=== PATIENT | female | born 1945 | race Caucasian/White ===

== ENCOUNTER → 2016-03-29 | Outpatient (CLI) | payer MEDICARE, BC ==
[2016-03-29 09:06] LABS: CHLORIDE,CL 106 mmol/L (98-110); SODIUM,NA 141 mmol/L (136-146)
== END | disposition home or self-care (01) ==
LOC: MW.CHRC 08:11
PROVIDERS: ATTEND Family Medicine
DX: Z00.00 Encounter for general adult medical examination without abnormal findings (principal); E78.00 Pure hypercholesterolemia, unspecified
CPT/HCPCS: 36415; 80053; 80061; 99214

== ENCOUNTER 2016-09-23 10:01 | Emergency (ER) | payer MEDICARE, BC, OTHER ==
[2016-09-23] MEDS ORDERED: Sodium Chloride 0.9% 1,000 ML IV ONE (10:23)
--- NOTE | 2016-09-23 10:25 | EDM.PDOC ---
ED HPI GENERAL MEDICAL PROBLEM - General Chief Complaint: Chest Pain Stated Complaint: CHEST PAINS Time Seen by Provider: 09/23/16 10:10 Source of Information: Reports: Patient History Limitations: Reports: No Limitations - History of Present Illness INITIAL COMMENTS - FREE TEXT/NARRATIVE: HISTORY AND PHYSICAL: History of present illness: [Patient comes the emergency room complaining of a fluttering sensation in her chest. Symptoms began yesterday but other than the fluttering sensation she didn 't have any other symptoms. This morning around 9 AM she was eating breakfast when the fluttering sensation returned causing her to feel dizzyand nauseated. She denies any chest pain, shortness of breath or difficulty breathing. No abdominal pain vomiting constipation or diarrhea. Denies blurred vision and double vision. No sore throat or earaches. No swelling to her feet or lower legs. She denies any pain at all. Denies history of similar symptoms in the past. She has recently been well and not had any recent infections. Has a history of anxiety, depression, hypercholesterolemia. Family history significant for MS. Patient admits that she takes in the stress and sadness of events happening around her and reacts strongly through her emotions. She has been especially concerned about her daughter's [id number] who has been recently diagnosed with stage IV cancer with metastasis and is not doing well. This weighs heavily on her heart and she spends a lot of time thinking about him and his illness. Has this at the bedside and states that this is typically how patient violeta.] Review of systems: As per history of present illness and below otherwise all systems reviewed and negative. Past medical history: As per history of present illness and as reviewed below otherwise noncontributory. Surgical history: As per history of present illness and as reviewed below otherwise noncontributory. Social history: No reported history of drug or alcohol abuse. Family history: As per history of present illness and as reviewed below otherwise noncontributory. Physical exam: HEENT: Atraumatic, normocephalic. Oral mucous membranes moist, throat clear. neck supple, nontender, no lymphadenopathy. Lungs: Clear to auscultation, breath sounds equal bilaterally, chest nontender with palpation. Heart: S1S2, regular rate, negative for murmur clicks, rubs,. Abdomen: Soft, nondistended, nontender. Negative for masses guarding and rebound. Negative for costovertebral tenderness. Pelvis: Stable nontender. Genitourinary: Deferred. Rectal: Deferred. Extremities: Atraumatic, negative for cords or calf pain. Swelling or cyanosis. Neurovascular unremarkable. Neuro: Awake, alert, oriented. Motor and sensory unremarkable throughout. Exam nonfocal. psych: Pleasant conversationalist. Diagnostics: [EKG, chest x-ray, CBC, CMP, troponin, UA] Therapeutics: [Ativan 0.5 mg IV, Zofran 4 mg IV, normal saline at 125 miles per hour] Impression: [Palpitations Anxiety] Plan: [EKG shows normal sinus rhythm and rate of 88. No ST changes. Troponin is less than 0.10. CBC and CMP are unremarkable. Urinalysis is clear. Chest x-ray shows no pneumothorax or abnormality. Discussed with patient that palpitations are not uncommon particularly in people with high stress and anxiety. Recommend follow-up with PCP, and therapist Lala Samano, in the next week. Strict return precautions are reviewed with the patient and her .] Definitive disposition and diagnosis as appropriate pending reevaluation and review of above. chest Pain Score (Numeric/FACES): 5 - Related Data Allergies Allergy/AdvReac Type Severity Reaction Status Date / Time No Known Allergies Allergy Verified 09/23/16 10:08 Home Meds: Home Meds ClonazePAM [KlonoPIN] 0.5 mg PO BEDTIME 09/23/16 [History] Desvenlafaxine Succinate [Pristiq ER] 50 mg PO DAILY 09/23/16 [History] atorvaSTATin [Lipitor] 10 mg PO BEDTIME 09/23/16 [History] Past Medical History - Past Health History Medical/Surgical History: Denies Medical/Surgical History Cardiovascular History: Reports: High Cholesterol Psychiatric History: Reports: Anxiety, Depression Social & Family History - Family History Family Medical History: Noncontributory - Tobacco Use Smoking Status *Q: Never Smoker - Recreational Drug Use Recreational Drug Use: No ED ROS GENERAL - Review of Systems Review Of Systems: ROS reveals no pertinent complaints other than HPI. ED EXAM, GENERAL - Physical Exam Exam: See Below Course - Vital Signs Last Recorded V/S: Last Vital Signs Temp 97.5 F 09/23/16 10:11 Pulse 83 09/23/16 10:11 Resp 18 09/23/16 10:11 BP 143/87 H 07/29/17 10:11 Pulse Ox 97 09/23/16 10:11 - Orders/Labs/Meds Orders: Active Orders 24 hr Category Date Time Status EKG Documentation Completion [RC] STAT Care 09/23/16 10:23 Active Chest 2V [CR] Stat Exams 09/23/16 10:23 Taken Sodium Chloride 0.9% [Normal Saline] 1,000 ml Med 09/23/16 10:23 Active IV .Bolus Medication Orders Sodium Chloride (Normal Saline) 1,000 mls @ 125 mls/hr IV .Bolus ONE Stop: 09/23/16 18:22 Last Admin: 09/23/16 10:47 Dose: 125 mls/hr Labs: Laboratory Tests 09/23/16 09/23/16 09/23/16 Range/Units 10:15 10:15 10:15 WBC 4.52 (4.0-11.0) K/uL RBC 4.94 (4.30-5.90) M/uL Hgb 14.2 (12.0-16.0) g/dL Hct 42.5 (36.0-46.0) % MCV 86.0 (80.0-98.0) fL MCH 28.7 (27.0-32.0) pg MCHC 33.4 (31.0-37.0) g/dL RDW Std Deviation 41.7 (28.0-62.0) fl RDW Coeff of Parth 13 (11.0-15.0) % Plt Count 225 (150-400) K/uL MPV 10.00 (7.40-12.00) fL Neut % (Auto) 58.8 (48.0-80.0) % Lymph % (Auto) 24.6 (16.0-40.0) % Garrett % (Auto) 10.4 (0.0-15.0) % Eos % (Auto) 5.8 (0.0-7.0) % Baso % (Auto) 0.4 (0.0-1.5) % Neut # (Auto) 2.7 (1.4-5.7) K/uL Lymph # (Auto) 1.1 (0.6-2.4) K/uL Garrett # (Auto) 0.5 (0.0-0.8) K/uL Eos # (Auto) 0.3 (0.0-0.7) K/uL Baso # (Auto) 0.0 (0.0-0.1) K/uL Nucleated RBC % 0.0 /100WBC Nucleated RBCs # 0 K/uL Sodium 140 (136-146) mmol/L Potassium 3.9 (3.5-5.1) mmol/L Chloride 103 (98-110) mmol/L Carbon Dioxide 28 (21-31) mmol/L BUN 22 (6.0-23.0) mg/dL Creatinine 1.0 (0.6-1.5) mg/dL Est Cr Clr Drug Dosing TNP Estimated GFR (MDRD) 54.7 ml/min Glucose 98 (60-110) mg/dL Calcium 9.5 (8.8-10.8) mg/dL Total Bilirubin 0.6 (0.1-1.5) mg/dL AST 26 (5-40) IU/L ALT 23 (8-54) IU/L Alkaline Phosphatase 72 (40-150) Troponin I < 0.10 (0.0-0.29) NG/ML Total Protein 7.2 (6.0-8.0) g/dL Albumin 4.0 (3.4-4.8) g/dL Globulin 3.2 (2.0-3.5) g/dL Albumin/Globulin Ratio 1.3 (1.3-2.8) Urine Color Urine Appearance Urine pH (5.0-8.0) Ur Specific Briscoe (1.001-1.035) Urine Protein (NEGATIVE) mg/dL Urine Glucose (UA) (NEGATIVE) mg/dL Urine Ketones (NEGATIVE) mg/dL Urine Occult Blood (NEGATIVE) Urine Nitrite (NEGATIVE) Urine Bilirubin (NEGATIVE) Urine Urobilinogen (<2.0) EU/dL Ur Leukocyte Esterase (NEGATIVE) Urine RBC (0-2/HPF) Urine WBC (0-5/HPF) Ur Epithelial Cells (NONE-FEW) Urine Bacteria (NEGATIVE) 09/23/16 Range/Units 10:45 WBC (4.0-11.0) K/uL RBC (4.30-5.90) M/uL Hgb (12.0-16.0) g/dL Hct (36.0-46.0) % MCV (80.0-98.0) fL MCH (27.0-32.0) pg MCHC (31.0-37.0) g/dL RDW Std Deviation (28.0-62.0) fl RDW Coeff of Parth (11.0-15.0) % Plt Count (150-400) K/uL MPV (7.40-12.00) fL Neut % (Auto) (48.0-80.0) % Lymph % (Auto) (16.0-40.0) % Garrett % (Auto) (0.0-15.0) % Eos % (Auto) (0.0-7.0) % Baso % (Auto) (0.0-1.5) % Neut # (Auto) (1.4-5.7) K/uL Lymph # (Auto) (0.6-2.4) K/uL Garrett # (Auto) (0.0-0.8) K/uL Eos # (Auto) (0.0-0.7) K/uL Baso # (Auto) (0.0-0.1) K/uL Nucleated RBC % /100WBC Nucleated RBCs # K/uL Sodium (136-146) mmol/L Potassium (3.5-5.1) mmol/L Chloride (98-110) mmol/L Carbon Dioxide (21-31) mmol/L BUN (6.0-23.0) mg/dL Creatinine (0.6-1.5) mg/dL Est Cr Clr Drug Dosing Estimated GFR (MDRD) ml/min Glucose (60-110) mg/dL Calcium (8.8-10.8) mg/dL Total Bilirubin (0.1-1.5) mg/dL AST (5-40) IU/L ALT (8-54) IU/L Alkaline Phosphatase (40-150) Troponin I (0.0-0.29) NG/ML Total Protein (6.0-8.0) g/dL Albumin (3.4-4.8) g/dL Globulin (2.0-3.5) g/dL Albumin/Globulin Ratio (1.3-2.8) Urine Color YELLOW Urine Appearance CLEAR Urine pH 7.0 (5.0-8.0) Ur Specific Briscoe 1.010 (1.001-1.035) Urine Protein NEGATIVE (NEGATIVE) mg/dL Urine Glucose (UA) NEGATIVE (NEGATIVE) mg/dL Urine Ketones NEGATIVE (NEGATIVE) mg/dL Urine Occult Blood NEGATIVE (NEGATIVE) Urine Nitrite NEGATIVE (NEGATIVE) Urine Bilirubin NEGATIVE (NEGATIVE) Urine Urobilinogen 0.2 (<2.0) EU/dL Ur Leukocyte Esterase MODERATE (NEGATIVE) Urine RBC 0-2 (0-2/HPF) Urine WBC 3-6 (0-5/HPF) Ur Epithelial Cells FEW (NONE-FEW) Urine Bacteria FEW (NEGATIVE) Meds: Medications Generic Name Dose Route Start Last Admin Trade Name Freq PRN Reason Stop Dose Admin Sodium Chloride 1,000 mls @ 125 mls/hr 09/23/16 10:23 09/23/16 10:47 Normal Saline IV 09/23/16 18:22 125 mls/hr .Bolus ONE Administration Discontinued Medications Generic Name Dose Route Start Last Admin Trade Name Freq PRN Reason Stop Dose Admin Lorazepam 0.5 mg 09/23/16 10:53 09/23/16 11:11 Ativan IVPUSH 09/23/16 10:54 0.5 mg ONETIME ONE Administration Ondansetron HCl 4 mg 09/23/16 10:26 09/23/16 10:28 Zofran IVPUSH 09/23/16 10:27 4 mg ONETIME ONE Administration Departure - Departure Time of Disposition: 12:00 Disposition: Home, Self-Care 01 Condition: Good Clinical Impression: Palpitations, Anxiety Instructions: Palpitations, [id number] Referrals: Huebrt Elmore MD [Primary Care Provider] - Forms: ED Department Discharge Additional Instructions: The following information is given to patients seen in the emergency department who are being discharged to home. This information is to outline your options for follow-up care. We provide all patients seen in our emergency department with a follow-up referral. The need for follow-up, as well as the timing and circumstances, are variable depending upon the specifics of your emergency department visit. If you don't have a primary care physician on staff, we will provide you with a referral. We always advise you to contact your personal physician following an emergency department visit to inform them of the circumstance of the visit and for follow-up with them and/or the need for any referrals to a consulting specialist. The emergency department will also refer you to a specialist when appropriate. This referral assures that you have the opportunity for follow-up care with a specialist. All of these measure are taken in an effort to provide you with optimal care, which includes your follow-up. Under all circumstances we always encourage you to contact your private physician who remains a resource for coordinating your care. When calling for follow-up care, please make the office aware that this follow-up is from your recent emergency room visit. If for any reason you are refused follow-up, please contact the [facility] emergency department at and asked to speak to the emergency department charge nurse. [address] [address] Follow-up with Parisa Milian this week. Return to ER as needed as discussed. - My Orders Last 24 Hours: My Active Orders 09/23/16 10:23 EKG Documentation Completion [RC] STAT Chest 2V [CR] Stat Sodium Chloride 0.9% [Normal Saline] 1,000 ml IV .Bolus - Assessment/Plan Last 24 Hours: My Active Orders 09/23/16 10:23 EKG Documentation Completion [RC] STAT Chest 2V [CR] Stat Sodium Chloride 0.9% [Normal Saline] 1,000 ml IV .Bolus
[2016-09-23] MEDS ORDERED: Ondansetron 4 MG/2 ML SDV IVPUSH ONE (10:26)
[2016-09-23] MEDS ORDERED: LORazepam 2 MG/ML MDV IVPUSH ONE (10:53)
[2016-09-23 10:58] LABS: CHLORIDE,CL 103 mmol/L (98-110); SODIUM,NA 140 mmol/L (136-146)
[2016-09-23 19:24] VITALS: BP 117/75
--- NOTE | 2016-09-25 11:01 | CR ---
EXAM DATE: 09/23/16 PATIENT'S AGE: 71 Patient: SAMAN RODRIGUEZ Facility: [place], [place] Site . Site : 1945 Study: XRay Chest [id number]/29/2017 10:43:05 AM Ordering Physician: Doctor Avalos Final Report: CHEST 2 VIEWS INDICATION: Chest pain and nausea. IMPRESSION: Normal heart size and vascular pattern. Lungs are clear. No pneumothorax or pleural abnormality. Dictated by Cresencio Gillespie MD @ Sep 23 2016 10:54AM (Electronic Signature) Report Signed by Proxy. [facility]
== END 2016-09-23 12:12 | disposition home or self-care (01) ==
LOC: MW.ED 10:01
DX: F41.9 Anxiety disorder, unspecified (principal); R00.2 Palpitations; E78.00 Pure hypercholesterolemia, unspecified; Z79.899 Other long term (current) drug therapy
CPT/HCPCS: 71020; 80053; 81001; 84484; 85025; 96361; 96374; 96375; 99285; J2060; J2405; J7040; 93005; 99283

== ENCOUNTER 2016-09-27 21:58 | Observation (INO) | payer MEDICARE, BC ==
[2016-09-27] MEDS ORDERED: Sodium Chloride 0.9% 10 ML Syringe FLUSH PRN (22:16)
[2016-09-27] MEDS ORDERED: Aspirin 81 MG Tab.Chew PO ONE (22:16)
[2016-09-27] MEDS ORDERED: Sodium Chloride 0.9% 2.5 ML Syringe FLUSH PRN (22:16)
--- NOTE | 2016-09-27 22:17 | EDM.PDOC ---
ED HPI GENERAL MEDICAL PROBLEM - General Chief Complaint: Chest Pain Stated Complaint: PT LT SHOULDER HURT Time Seen by Provider: 09/27/16 22:00 Source of Information: Reports: Patient History Limitations: Reports: No Limitations - History of Present Illness INITIAL COMMENTS - FREE TEXT/NARRATIVE: HISTORY AND PHYSICAL: History of present illness: [71-year-old female with a past medical history of high cholesterol and a family history of coronary artery disease since emergency department complaining of chest pain. Patient states she's had intermittent mid chest pressure over the last several days worse tonight. She states this is exertional relieved by rest. She has associated nausea but no diaphoresis or shortness of air. No productive cough or fever. Denies pleuritic pain. Pain is not reproducible with movement or palpation. No fevers chills sweats or shaking chills. Patient has never had a cardiac workup nor been known to have any Cardiac problem. She does not have a talcer Review of systems: As per history of present illness and below otherwise all systems reviewed and negative. Past medical history: As per history of present illness and as reviewed below otherwise noncontributory. Surgical history: As per history of present illness and as reviewed below otherwise noncontributory. Social history: No reported history of drug or alcohol abuse. Family history: As per history of present illness and as reviewed below otherwise noncontributory. Physical exam: Well-appearing patient distress alert communicative and appropriate. Nontender chest wall clear lungs regular rate and rhythm main her exam is benign HEENT: Atraumatic, normocephalic, pupils reactive, negative for conjunctival pallor or scleral icterus, mucous membranes moist, throat clear, neck supple, nontender, trachea midline. Lungs: Clear to auscultation, breath sounds equal bilaterally, chest nontender. Heart: S1S2, regular, negative for clicks, rubs, or JVD. Abdomen: Soft, nondistended, nontender. Negative for masses or hepatosplenomegaly. Negative for costovertebral tenderness. Pelvis: Stable nontender. Genitourinary: Deferred. Rectal: Deferred. Extremities: Atraumatic, negative for cords or calf pain. Neurovascular unremarkable. Neuro: Awake, alert, oriented. Cranial nerves II through XII unremarkable. Cerebellum unremarkable. Motor and sensory unremarkable throughout. Exam nonfocal. Diagnostics: [EKG interpreted by me normal sinus rhythm at 74 normal axis no STEMI Chest x-ray unremarkable interpreted by me] Therapeutics: [Aspirin given] Impression: [Chest pain] Plan: [Signs and symptoms consistent with chest pain possible cardiac etiology in a patient with multiple cardiac risk factors including high cholesterol strong family history and age. EKG unremarkable greater workup pending. Anticipate observation telemetry admission to the service of Dr. Trav Crooks for further cardiac workup and treatment as needed.] Definitive disposition and diagnosis as appropriate pending reevaluation and review of above. chest Pain Score (Numeric/FACES): 5 - Related Data Allergies Allergy/AdvReac Type Severity Reaction Status Date / Time No Known Allergies Allergy Verified 09/23/16 10:08 Home Meds: Home Meds ClonazePAM [KlonoPIN] 0.5 mg PO BEDTIME 09/23/16 [History] Desvenlafaxine Succinate [Pristiq] 50 mg PO DAILY 09/23/16 [History] atorvaSTATin [Lipitor] 10 mg PO BEDTIME 09/23/16 [History] Nitrofurantoin Traill/Macrocryst [Macrobid] 100 mg PO BID 09/28/16 [History] Past Medical History - Past Health History Medical/Surgical History: Denies Medical/Surgical History HEENT History: Reports: None Cardiovascular History: Reports: High Cholesterol Respiratory History: Reports: None Gastrointestinal History: Reports: None Genitourinary History: Reports: None [employer] History: Reports: None Musculoskeletal History: Reports: None Neurological History: Reports: None Psychiatric History: Reports: Anxiety, Depression Endocrine/Metabolic History: Reports: None Oncologic (Cancer) History: Reports: None Dermatologic History: Reports: None - Infectious Disease History Infectious Disease History: Reports: Chicken Pox - Past Surgical History Female Surgical History: Reports: None Social & Family History - Family History Family Medical History: Noncontributory - Tobacco Use Smoking Status *Q: Never Smoker - Recreational Drug Use Recreational Drug Use: No ED ROS GENERAL - Review of Systems Review Of Systems: See Below (History of present illness) ED EXAM, GENERAL - Physical Exam Exam: See Below (History of present illness) Course - Vital Signs Last Recorded V/S: Last Vital Signs Temp 36.5 C 09/28/16 08:00 Pulse 79 09/28/16 08:00 Resp 16 09/28/16 08:00 BP 122/59 L 09/28/16 08:00 Pulse Ox 96 09/28/16 08:00 - Orders/Labs/Meds Labs: Laboratory Tests 09/27/16 09/27/16 09/27/16 Range/Units 22:05 22:05 22:05 WBC 5.15 (4.0-11.0) K/uL RBC 4.68 (4.30-5.90) M/uL Hgb 13.5 (12.0-16.0) g/dL Hct 40.3 (36.0-46.0) % MCV 86.1 (80.0-98.0) fL MCH 28.8 (27.0-32.0) pg MCHC 33.5 (31.0-37.0) g/dL RDW Std Deviation 41.3 (28.0-62.0) fl RDW Coeff of Parth 13 (11.0-15.0) % Plt Count 236 (150-400) K/uL MPV 10.10 (7.40-12.00) fL Neut % (Auto) 49.1 (48.0-80.0) % Lymph % (Auto) 32.8 (16.0-40.0) % Traill % (Auto) 11.3 (0.0-15.0) % Eos % (Auto) 6.2 (0.0-7.0) % Baso % (Auto) 0.6 (0.0-1.5) % Neut # (Auto) 2.5 (1.4-5.7) K/uL Lymph # (Auto) 1.7 (0.6-2.4) K/uL Traill # (Auto) 0.6 (0.0-0.8) K/uL Eos # (Auto) 0.3 (0.0-0.7) K/uL Baso # (Auto) 0.0 (0.0-0.1) K/uL Nucleated RBC % 0.0 /100WBC Nucleated RBCs # 0 K/uL Sodium 141 (136-146) mmol/L Potassium 4.0 (3.5-5.1) mmol/L Chloride 105 (98-110) mmol/L Carbon Dioxide 27 (21-31) mmol/L BUN 21 (6.0-23.0) mg/dL Creatinine 1.0 (0.6-1.5) mg/dL Est Cr Clr Drug Dosing 40.81 mL/min Estimated GFR (MDRD) 54.7 ml/min Glucose 114 H (60-110) mg/dL Calcium 9.6 (8.8-10.8) mg/dL Total Bilirubin 0.3 (0.1-1.5) mg/dL AST 24 (5-40) IU/L ALT 24 (8-54) IU/L Alkaline Phosphatase 70 (40-150) Troponin I < 0.10 (0.0-0.29) NG/ML Total Protein 7.2 (6.0-8.0) g/dL Albumin 4.1 (3.4-4.8) g/dL Globulin 3.1 (2.0-3.5) g/dL Albumin/Globulin Ratio 1.3 (1.3-2.8) Meds: Medications Discontinued Medications Generic Name Dose Route Start Last Admin Trade Name Freq PRN Reason Stop Dose Admin Aspirin 324 mg 09/27/16 22:16 09/27/16 22:25 Aspirin PO 09/27/16 22:17 324 mg ONETIME ONE Administration Atorvastatin Calcium 10 mg 09/28/16 21:00 Lipitor PO BEDTIME ABAD Clonazepam 0.5 mg 09/28/16 21:00 Klonopin PO BEDTIME ABAD Sodium Chloride 1,000 mls @ 125 mls/hr 09/27/16 22:30 09/28/16 01:00 Normal Saline IV 125 mls/hr ASDIRECTED ABAD Infusion Nitrofurantoin Macrocrystals 100 mg 09/28/16 09:00 Macrobid PO BID ABAD Desvenlafaxine 1 each 09/28/16 21:00 Succinate [Pristiq] PO 50 Mg BEDTIME ABAD Sodium Chloride 10 ml 09/27/16 22:16 Saline Flush FLUSH ASDIRECTED PRN Keep Vein Open Sodium Chloride 2.5 ml 09/27/16 22:16 Saline Flush FLUSH ASDIRECTED PRN Keep Vein Open Departure - Departure Time of Disposition: 08:00 Disposition: Refer to Observation Condition: Good Clinical Impression: Chest pain - Discharge Information
[2016-09-27] MEDS ORDERED: Sodium Chloride 0.9% 1,000 ML IV SCH (22:30)
[2016-09-28] MEDS ORDERED: Nitrofurantoin Monohydrate/Macrocrystalline 100 MG Cap PO SCH (09:00)
[2016-09-28 09:26] VITALS: BP 122/59
--- NOTE | 2016-09-28 10:53 | CR ---
EXAM DATE: 09/27/16 PATIENT'S AGE: 71 Patient: SAMAN RODRIGUEZ Facility: [place], [place] Site . Site : 1945 Study: XRay Chest [id number]/2/2017 10:59:44 PM Ordering Physician: Apollo Bermeo Final Report: INDICATION: pain TECHNIQUE: Chest 1 view COMPARISON: September 23, 2016 FINDINGS: Cardiovascular and mediastinum: Heart size and vasculature are normal in caliber and appearance. Mediastinum is within normal limits. Lungs and pleural space: Hyperinflation and scarring. No sign of pleural effusion. No pneumothorax. Bones and soft tissues: Degenerative changes with rightward curvature. IMPRESSION: No acute cardiopulmonary disease. Dictated by Jayce Gonzalez MD @ 09/27/2016 11:18:25 PM Dictated by: Jayce Gonzalez MD @ 09/27/2016 23:19:41 (Electronic Signature) Report Signed by Proxy. [facility]
--- NOTE | 2016-09-28 11:38 | PCM.HP ---
H&P History of Present Illness - General Date of Service: 09/28/16 Admit Problem/Dx: Admission Diagnosis/Problem Admission Diagnosis/Problem Chest pain Source of Information: Patient - History of Present Illness Initial Comments - Free Text/Narative: Her presenting illness: Liana is a wonderful 71-year-old female who was presented today secondary to chest pain. He states this is been an ongoing issue off and on for about a week. She was assessed for chest pain earlier in the week in the ER and was sent home with no cardiac related issues. Colitides after that she did have a UTI infection for which she was given antibiotics. 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 She states that she also has anxiety and that started to kick in a little bit more she ended up developing diaphoresis and a little bit of nausea. 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 In the emergency department she had an ECG done initial tropes done both of which came back negative however due to her history of high cholesterol and family history of coronary artery disease on both sides of family as well as her repeat chest pain it was determined that the patient needed to be admitted for ACS rule out. chest Pain Score (Numeric/FACES): 0 - Related Data Allergies/Adverse Reactions: Allergies Allergy/AdvReac Type Severity Reaction Status Date / Time No Known Allergies Allergy Verified 09/23/16 10:08 Home Medications: Home Meds ClonazePAM [KlonoPIN] 0.5 mg PO BEDTIME 09/23/16 [History] Desvenlafaxine Succinate [Pristiq] 50 mg PO DAILY 09/23/16 [History] atorvaSTATin [Lipitor] 10 mg PO BEDTIME 09/23/16 [History] Nitrofurantoin Yates/Macrocryst [Macrobid] 100 mg PO BID 09/28/16 [History] Past Medical History - Past Health History Medical/Surgical History: Denies Medical/Surgical History HEENT History: Reports: None Cardiovascular History: Reports: High Cholesterol Respiratory History: Reports: None Gastrointestinal History: Reports: None Genitourinary History: Reports: UTI, Recurrent, Other (See Below) Other Genitourinary History: currently on medication 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: 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 Musculoskeletal History: Reports: Arthritis Neurological History: Reports: None Psychiatric History: Reports: Anxiety, Depression Other Psychiatric History: on medication Endocrine/Metabolic History: Reports: None Hematologic History: Reports: None Immunologic History: Reports: None Oncologic (Cancer) History: Reports: None Dermatologic History: Reports: None - Infectious Disease History Infectious Disease History: Reports: Chicken Pox - Past Surgical History Head Surgeries/Procedures: Reports: None HEENT Surgical History: Reports: None Cardiovascular Surgical History: Reports: None Respiratory Surgical History: Reports: None GI Surgical History: Reports: Appendectomy Female Surgical History: Reports: None Endocrine Surgical History: Reports: None Neurological Surgical History: Reports: None Musculoskeletal Surgical History: Reports: None Oncologic Surgical History: Reports: None Dermatological Surgical History: Reports: None Social & Family History - Family History Cardiac: Reports: CAD, DC - Tobacco Use Smoking Status *Q: Never Smoker Second Hand Smoke Exposure: No - Caffeine Use Caffeine Use: Reports: Coffee Caffeine Use Comment: 3 cups coffee/day - Recreational Drug Use Recreational Drug Use: No H&P Review of Systems - Review of Systems: Review Of Systems: ROS reveals no pertinent complaints other than HPI. Exam - Exam Exam: See Below - Vital Signs Vital Signs: Last Vital Signs Temp 36.5 C 09/28/16 08:00 Pulse 79 09/28/16 08:00 Resp 16 09/28/16 08:00 BP 122/59 L 09/28/16 08:00 Pulse Ox 96 09/28/16 08:00 Weight: 58.196 kg - Exam General: Alert, Oriented HEENT: Conjunctiva Clear, EOMI Neck: Supple, Trachea Midline Lungs: Clear to Auscultation, Normal Respiratory Effort Cardiovascular: Regular Rate, Regular Rhythm GI/Abdominal Exam: Normal Bowel Sounds, Soft, Non-Tender Back Exam: Normal Inspection Extremities: Normal Inspection, Normal Range of Motion, Non-Tender, No Pedal Edema, Normal Capillary Refill Skin: Warm, Dry, Intact Neurological: Cranial Nerves Intact Neuro Extensive - Mental Status: Alert, Oriented x3 Psychiatric: Alert - Patient Data Lab Results Last 24 hrs: Laboratory Results - last 24 hr 09/28/16 09/28/16 Range/Units 03:58 10:21 Troponin I < 0.10 < 0.10 (0.0-0.29) NG/ML Result Diagrams: 09/27/16 22:05 09/27/16 22:05 EKG INTERPRETATION EKG Date: 09/28/16 Rhythm: NSR [place]: Normal P-Wave: Present QRS: Normal ST-T: Normal QT: Normal *Q Meaningful Use (ADM) - VTE *Q VTE Criteria *Q: - Stroke *Q Stroke Criteria *Q: - AMI *Q AMI Criteria *Q: - Problem List (1) Chest pain SNOMED Code(s): 58056458 ICD Code: R07.9 - CHEST PAIN, UNSPECIFIED Status: Acute Priority: High Current Visit: Yes Problem List Initiated/Reviewed/Updated: Yes Orders Last 24hrs: Active Orders 24 hr Category Date Time Status Communication Order [RC] DAILY Care 09/28/16 00:18 Active EKG 12 Lead [EKG Documentation Completion] [] ROUTINE Care 09/28/16 10:21 Inactive Ready for Discharge [] PER UNIT ROUTINE Care 09/28/16 11:30 Ordered Telemetry Monitoring [Cardiac Monitoring] [] Q8H Care 09/28/16 00:16 Active Heart Healthy Diet [DIET] Diet 09/28/16 Breakfast Active ClonazePAM [KlonoPIN] Med 09/28/16 21:00 Active 0.5 mg PO BEDTIME Nitrofurantoin Yates/Macrocryst [Macrobid] Med 09/28/16 09:00 Hold 100 mg PO BID Patient's Own Medication [Ptom] Med 09/28/16 21:00 Active 1 each PO BEDTIME atorvaSTATin [Lipitor] Med 09/28/16 21:00 Active 10 mg PO BEDTIME Saline Lock Insert [OM.PC] Routine Oth 09/28/16 00:18 Ordered Medication Orders Atorvastatin Calcium (Lipitor) 10 mg PO BEDTIME ABAD Clonazepam (Klonopin) 0.5 mg PO BEDTIME ABAD Nitrofurantoin Macrocrystals (Macrobid) 100 mg PO BID ABAD Desvenlafaxine Succinate [Pristiq] 50 Mg 1 each PO BEDTIME ABAD Sodium Chloride (Saline Flush) 10 ml FLUSH ASDIRECTED PRN PRN Reason: Keep Vein Open Sodium Chloride (Saline Flush) 2.5 ml FLUSH ASDIRECTED PRN PRN Reason: Keep Vein Open Assessment/Plan Comment:: Assessment/plan: #1. Chest pain exertional in nature, diaphoresis, nausea along with previous episode of chest pain. - ACS rule out required, drops 3, ECG, general labs. Discharge summary Admitting diagnosis: 1. Chest pain exertional in nature, diaphoresis, nausea, ACS rule out required Discharge diagnosis #1. Exertional chest pain, diaphoresis, and nausea now resolved ACS symptoms ruled out 2. Due to patient's GELA score 8% patient does require outpatient stress test. Consultations: None Procedures: None Hospitalization course: Patient was admitted last night secondary to ACS rule out she no longer had chest pain diaphoresis while inpatient. Patient had a normal ECG drips were normal 3, normal laboratory values. After speaking with the patient this morning she was stable and not having any further issues. However her GELA score is 8% risk of further event as such patient will be getting a nuclear stress test outpatient and seeing her primary care physician for further workup. Discharge and disposition: Home Condition on discharge: Patient was stable nondiaphoretic no chest pain no shortness of breath able to intake proper by mouth and was ready to go home Instructions on discharge: Patient was told if she had further chest pain, diaphoresis, nausea or vomiting, fever she is to either see her primary care physician right away or come back to the ER right away. Medications on discharge: Resume home medication Follow-up instructions on discharge : Patient is to follow-up with her primary care physician Dr. deleon. Patient is also to have a nuclear stress test done outpatient for cardiac-related symptoms rule out
[2016-09-28] MEDS ORDERED: Desvenlafaxine Succinate [Pristiq] 50 MG PO SCH (21:00)
[2016-09-28] MEDS ORDERED: ClonazePAM 0.5 MG Tab PO SCH (21:00)
[2016-09-28] MEDS ORDERED: atorvaSTATin 10 MG Tab PO SCH (21:00)
== END 2016-09-28 12:05 | disposition home or self-care (01) ==
LOC: MW.ED 21:58 → MW.MS 23:23
PROVIDERS: ADMIT Internal Medicine; ATTEND Internal Medicine
DX: R07.9 Chest pain, unspecified (principal); E78.00 Pure hypercholesterolemia, unspecified; M19.90 Unspecified osteoarthritis, unspecified site; F41.9 Anxiety disorder, unspecified; F32.9 Major depressive disorder, single episode, unspecified; Z87.440 Personal history of urinary (tract) infections; Z82.49 Family history of ischemic heart disease and other diseases of the circulatory system; Z90.49 Acquired absence of other specified parts of digestive tract
CPT/HCPCS: 36415; 71010; 80053; 84484; 85025; 93005; 96360; 99285; A9270; G0378; J7040; 99284

== ENCOUNTER 2017-07-13 07:01 | Day surgery (SDC) | payer MEDICARE, BC ==
[~2017-07-13 07:01] MED LIST: Lidocaine 2% 5 ML SDV ONE; Propofol 200 MG/20 ML SDV ONE; fentaNYL 100 MCG/2 ML SDV ONE
--- NOTE | 2017-07-13 07:27 | PCM.SN ---
- Free Text/Narrative Note: update to PAE, colonoscopy cancelled yest, pt kept on CL overnight. PMH unchanged. physical exam repeated and unchanged.
[2017-07-13] MEDS ORDERED: Glycopyrrolate 0.2 MG/ML SDV ONE (08:00)
--- NOTE | 2017-07-13 08:24 | PCM.PRGIL ---
Lower GI Endoscopy Procedure Procedure:: Reports: Colonoscopy Procedure Comments:: Diverticulosis appreciated. Cecum to Rectum time was 8 minutes. Performed By:: Camille Bell Date of Service:: 07/13/17 Informed Consent Obtained?: Yes Indications:: Reports: Screening Rectodigital Exam:: Reports: Normal Exam, Normal Rectal Tone Sedation:: Reports: IV Depth Reached (Location):: Reports: Cecum Landmarks:: Reports: Cecum - Findings Rectal:: Reports: Normal Hemorrhoids:: Reports: None Condyloma:: Reports: None Colitis Comments:: Diverticulosis Polyps (location):: Reports: None Mass (Location):: Reports: None Stenosis (Location):: Reports: None Complications:: Reports: None
[2017-07-13 08:33] VITALS: BP 111/65
--- NOTE | 2017-07-13 08:38 | PCM48HPAN ---
Post Anesthesia Note - EVALUATION WITHIN 48HRS OF ANESTHETIC Vital Signs in Normal Range: Yes Patient Participated in Evaluation: Yes Respiratory Function Stable: Yes Airway Patent: Yes Cardiovascular Function Stable: Yes Hydration Status Stable: Yes Pain Control Satisfactory: Yes Nausea and Vomiting Control Satisfactory: Yes Mental Status Recovered: Yes Resp Rate: 17
--- NOTE | 2017-07-13 08:38 | PCM.POSTAN ---
POST ANESTHESIA ASSESSMENT - MENTAL STATUS Mental Status: Alert, Oriented - RESPIRATORY Respiratory Status: Respiratory Rate WNL, Airway Patent, O2 Saturation Stable - CARDIOVASCULAR CV Status: Pulse Rate WNL, Blood Pressure Stable - GASTROINTESTINAL GI Status: No Symptoms - POST OP HYDRATION Hydration Status: Adequate & Stable
--- NOTE | 2017-07-13 09:40 | OR ---
SURGEON: MANOHAR PERALTA MD DATE OF PROCEDURE: 07/13/2017 PREOPERATIVE DIAGNOSIS: Screening colonoscopy. POSTOPERATIVE DIAGNOSIS: Diverticulosis. PROCEDURE PERFORMED: Screening colonoscopy. ANESTHESIA: MAC. INSTRUMENT USED: Olympus colonoscope. EXTENT OF EXAM: To the cecum. PREPARATION: Fair. LIMITATIONS: None. INDICATION FOR EXAMINATION: The patient is a 72-year-old female who presents for a repeat screening colonoscopy. She had one 10 years ago that was normal. She has a known history of diverticulosis. The patient and I discussed the procedure, expected perioperative course, and risks including bleeding, infection, or damage to surrounding structures including perforation. The patient verbalized understanding and wishes to proceed. PROCEDURE IN DETAIL: The patient was brought into the endoscopy suite and placed in the left lateral decubitus position. A time-out was completed verifying the patient's name, age, date of , allergies, and procedure to be performed. Monitored anesthesia care was induced. Continuous oxygen was provided via nasal cannula throughout the procedure. After adequate sedation was achieved, a digital rectal exam was performed. This exam was remarkable for mild hemorrhoidal disease. A well- lubricated colonoscope was inserted in the rectum and advanced under direct visualization to the level of cecum. The cecum was identified by both visual and anatomic landmarks. A photograph was taken of the cecal cap as well as the scope retroflexed within the cecum. The scope was then fully withdrawn while examining the color, texture, anatomy, and integrity of the mucosa from the cecum to the anal canal. The patient was noted to have diverticulosis within the sigmoid colon. The remainder of the colonic mucosa appeared normal. The scope was brought into the rectum and retroflexed to allow visualization of the anal canal opening. This confirmed some mild hemorrhoidal enlargement and a photograph was taken. The scope was then straightened out and removed from the patient. The cecum to anus time was 8 minutes. The patient tolerated the procedure well and was taken to the PACU in stable condition. ENDOSCOPIC DIAGNOSIS: Diverticulosis. RECOMMENDATIONS: The patient is aware of diverticulosis, and the patient education was performed previously. The patient does not need another screening colonoscopy unless she has any changes in her bowel habits. PANDA MONACO /[id number]
== END 2017-07-13 09:50 ==
LOC: MW.SDS 07:01
PROVIDERS: ATTEND Surgery
DX: Z12.11 Encounter for screening for malignant neoplasm of colon (principal); K57.30 Diverticulosis of large intestine without perforation or abscess without bleeding; K64.9 Unspecified hemorrhoids
CPT/HCPCS: G0121; J3010; J2704

== ENCOUNTER 2018-08-01 11:25 | Day surgery (SDC) | payer MEDICARE, BC ==
[2018-07-31 16:04] LABS: CHLORIDE,CL 102 mmol/L (98-107); SODIUM,NA 138 mmol/L (136-145)
--- NOTE | 2018-08-01 08:51 | PCM.PREANE ---
Preanesthetic Assessment - Anesthesia/Transfusion/Family Hx Anesthesia History: Prior Anesthesia Without Reaction Family History of Anesthesia Reaction: No Transfusion History: Prior Transfusion Without Reaction Intubation History: Unknown - Review of Systems General: No Symptoms Pulmonary: No Symptoms Cardiovascular: No Symptoms Gastrointestinal: No Symptoms Neurological: No Symptoms Other: Reports: None - Physical Assessment NPO Status Date: 07/31/18 NPO Status Time: 22:00 O2 Sat by Pulse Oximetry: 98 Respiratory Rate: 16 Vital Signs: Last Vital Signs Temp 36.5 C 08/01/18 08:00 Pulse 78 08/01/18 08:00 Resp 16 08/01/18 08:00 BP 128/73 08/01/18 08:00 Pulse Ox 98 08/01/18 08:00 Height: 5 ft 2 in Weight: 58.06 kg ASA Class: 2 Mental Status: Alert & Oriented x3 Airway Class: Mallampati = 2 Dentition: Reports: Normal Dentition, Partial (lower) Thyro-Mental Finger Breadths: 3 Mouth Opening Finger Breadths: 3 ROM/Head Extension: Full Lungs: Clear to Auscultation, Normal Respiratory Effort Cardiovascular: Regular Rate, Regular Rhythm - Lab Values: Laboratory Last Values WBC 5.50 K/uL (4.0-11.0) 07/31/18 15:26 RBC 4.61 M/uL (4.30-5.90) 07/31/18 15:26 Hgb 13.1 g/dL (12.0-16.0) 07/31/18 15:26 Hct 39.6 % (36.0-46.0) 07/31/18 15:26 MCV 85.9 fL (80.0-98.0) 07/31/18 15:26 MCH 28.4 pg (27.0-32.0) 07/31/18 15:26 MCHC 33.1 g/dL (31.0-37.0) 07/31/18 15:26 RDW Std Deviation 42.4 fl (28.0-62.0) 07/31/18 15:26 RDW Coeff of Parth 14 % (11.0-15.0) 07/31/18 15:26 Plt Count 241 K/uL (150-400) 07/31/18 15:26 MPV 10.20 fL (7.40-12.00) 07/31/18 15:26 Nucleated RBC % 0.0 /100WBC 07/31/18 15:26 Nucleated RBCs # 0 K/uL 07/31/18 15:26 Sodium 138 mmol/L (136-145) 07/31/18 15:26 Potassium 4.2 mmol/L (3.5-5.1) 07/31/18 15:26 Chloride 102 mmol/L (98-107) 07/31/18 15:26 Carbon Dioxide 26.7 mmol/L (21.0-32.0) 07/31/18 15:26 BUN 21 mg/dL (7.0-18.0) H 07/31/18 15:26 Creatinine 0.9 mg/dL (0.6-1.0) 07/31/18 15:26 Est Cr Clr Drug Dosing 44.03 mL/min 07/31/18 15:26 Estimated GFR (MDRD) > 60.0 ml/min 07/31/18 15:26 Glucose 128 mg/dL (74-106) H 07/31/18 15:26 Calcium 9.2 mg/dL (8.5-10.1) 07/31/18 15:26 Blood Type A POSITIVE 07/31/18 15:26 Antibody Screen POSITIVE 07/31/18 15:26 Antibody Identification Anti-Kayy 07/31/18 15: Crossmatch See Detail 07/31/18 15:26 - Allergies Allergies/Adverse Reactions: Allergies Allergy/AdvReac Type Severity Reaction Status Date / Time No Known Allergies Allergy Verified 07/30/18 09:36 - Blood Blood Available: No - Anesthesia Plan Pre-Op Medication Ordered: None - Acknowledgements Anesthesia Type Planned: General Anesthesia Pt an Appropriate Candidate for the Planned Anesthesia: Yes Alternatives and Risks of Anesthesia Discussed w Pt/Guardian: Yes Pt/Guardian Understands and Agrees with Anesthesia Plan: Yes PreAnesthesia Questionnaire - Past Health History Medical/Surgical History: Denies Medical/Surgical History HEENT History: Reports: Other (See Below) Other HEENT History: wears glasses, has partial lower removable denture Cardiovascular History: Reports: High Cholesterol Respiratory History: Reports: None Gastrointestinal History: Reports: None Genitourinary History: Reports: UTI, Recurrent Other Genitourinary History: UTI's in recent years 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: Musculoskeletal History: Reports: Osteoporosis Neurological History: Reports: None Psychiatric History: Reports: Anxiety, Depression Other Psychiatric History: on medication Endocrine/Metabolic History: Reports: None Hematologic History: Reports: Blood Transfusion(s) Other Hematologic History: had a blood transfusion from her father as a child ( post tonsillectomy) Immunologic History: Reports: None Oncologic (Cancer) History: Reports: None Dermatologic History: Reports: None - Infectious Disease History Infectious Disease History: Reports: Chicken Pox - Past Surgical History Head Surgeries/Procedures: Reports: None HEENT Surgical History: Reports: Tonsillectomy Cardiovascular Surgical History: Reports: None Respiratory Surgical History: Reports: None GI Surgical History: Reports: Appendectomy, Cholecystectomy, Colonoscopy Female Surgical History: Reports: None Endocrine Surgical History: Reports: None Neurological Surgical History: Reports: Lumbar Spine Musculoskeletal Surgical History: Reports: None Oncologic Surgical History: Reports: None Dermatological Surgical History: Reports: None - SUBSTANCE USE Smoking Status *Q: Never Smoker Recreational Drug Use History: No - HOME MEDS Home Medications: Home Meds ClonazePAM [KlonoPIN] 0.5 mg PO BEDTIME 09/23/16 [History] Desvenlafaxine Succinate [Pristiq] 50 mg PO DAILY 09/23/16 [History] Multivitamin [Multivitamins] 1 tab PO DAILY 07/09/17 [History] atorvaSTATin [Lipitor] 40 mg PO BEDTIME 07/30/18 [History] - CURRENT (IN HOUSE) MEDS Current Meds: Current Medications Lactated Ringer's (Ringers, Lactated) 1,000 mls @ 125 mls/hr IV ASDIRECTED ABAD Last Admin: 08/01/18 08:05 Dose: 125 mls/hr Sodium Chloride (Saline Flush) 10 ml FLUSH ASDIRECTED PRN PRN Reason: Keep Vein Open Sodium Chloride (Saline Flush) 2.5 ml FLUSH ASDIRECTED PRN PRN Reason: Keep Vein Open Sodium Chloride (Normal Saline) 10 ml IV ASDIRECTED PRN PRN Reason: IV Use Discontinued Medications Cefazolin Sodium/Dextrose (Ancef) Confirm Administered Dose 2 gm IV .STK-MED ONE Stop: 08/01/18 07:30 Dexamethasone (Dexamethasone) Confirm Administered Dose 20 mg .ROUTE .STK-MED ONE Stop: 08/01/18 07:32 Fentanyl (Sublimaze) Confirm Administered Dose 250 mcg .ROUTE .STK-MED ONE Stop: 08/01/18 07:29 Fluorescein Sodium (Ak-Fluor) Confirm Administered Dose 5 ml .ROUTE .STK-MED ONE Stop: 08/01/18 07:46 Glycopyrrolate (Robinul) Confirm Administered Dose 0.4 mg .ROUTE .STK-MED ONE Stop: 08/01/18 07:34 Cefazolin Sodium/Dextrose 2 gm (/ Premix) 50 mls @ 100 mls/hr IV ONETIME ONE Stop: 07/31/18 13:49 Acetaminophen (Ofirmev) Confirm Administered Dose 100 mls @ as directed IV .STK- MED ONE Stop: 08/01/18 07:27 Lidocaine HCl (Xylocaine-Mpf 1%) Confirm Administered Dose 5 mls @ as directed .ROUTE .STK-MED ONE Stop: 08/01/18 07:32 Midazolam HCl (Versed 1 Mg/Ml) Confirm Administered Dose 2 mg .ROUTE .STK-MED ONE Stop: 08/01/18 07:29 Neostigmine Methylsulfate (Neostigmine) Confirm Administered Dose 5 mg .ROUTE .STK-MED ONE Stop: 08/01/18 07:34 Ondansetron HCl (Zofran) Confirm Administered Dose 4 mg .ROUTE .STK-MED ONE Stop: 08/01/18 07:32 Propofol (Diprivan 20 Ml) Confirm Administered Dose 200 mg .ROUTE .STK-MED ONE Stop: 08/01/18 07:29 Rocuronium [place] (Zemuron) Confirm Administered Dose 100 mg .ROUTE .STK-MED ONE Stop: 08/01/18 07:33 Succinylcholine Chloride (Succinylcholine Chloride) Confirm Administered Dose 200 mg .ROUTE .STK-MED ONE Stop: 08/01/18 07:33
--- NOTE | 2018-08-01 10:55 | PCM.OPNOTE ---
- General Post-Op/Procedure Note Date of Surgery/Procedure: 08/01/18 Operative Procedure(s): TVH,BSO ,ant repeair cystoscopy Post-Op Diagnosis: Same Anesthesia Technique: General ET Tube Primary Surgeon: Vargas Wisdom EBL in mLs: 100 Complications: None Condition: Good
[2018-08-01] MEDS: fentaNYL 100 MCG/2 ML SDV IVPUSH PRN ×2 (11:15→11:23)
[~2018-08-01 11:25] MED LIST changes: +Dexamethasone 4 MG/ML 5 ML MDV ONE; +Fluorescein 5 ML Vial ONE; +Glycopyrrolate 0.2 MG/ML SDV ONE; +Ketorolac 30 MG/ML SDV IVPUSH ONE; +Ketorolac 30 MG/ML SDV IVPUSH PRN; +Lactated Ringers 1,000 ML IV SCH; -Lidocaine 2% 5 ML SDV ONE; +Midazolam 1 MG/ML 2 ML SDV ONE; +Morphine 4 MG/ML Syringe IVPUSH PRN; +Neostigmine Methylsulfate 1 MG/ML 5 ML Syringe ONE; +Ondansetron 4 MG/2 ML SDV IVPUSH PRN; +Ondansetron 4 MG/2 ML SDV ONE; +Promethazine 25 MG/ML SDV IM PRN; +Rocuronium 100 MG/10 ML Syringe ONE; +Scopolamine 1.5 MG Transdermal Patch ONE; +Scopolamine 1.5 MG Transdermal Patch TRDERM PRN; +Sodium Chloride 0.9% 10 ML SDV IV PRN; +Sodium Chloride 0.9% 10 ML Syringe FLUSH PRN; +Sodium Chloride 0.9% 2.5 ML Syringe FLUSH PRN; +Sodium Chloride 0.9% 20 ML ONE; +ceFAZolin 2 GM in Premix Bag 1 BAG IV ONE; +ceFAZolin/Dextrose,Iso-Osmotic 2 GM/50 ML Duplex Bag IV ONE; +ePHEDrine 50 MG/ML SDV ONE; -fentaNYL 100 MCG/2 ML SDV ONE; +fentaNYL 250 MCG/5 ML SDV ONE
[2018-08-01] MEDS: Acetaminophen/oxyCODONE 325-5 MG Tab PO PRN ×2 (13:06→22:04)
--- NOTE | 2018-08-01 16:30 | OR ---
SURGEON: Vargas Wisdom MD DATE OF PROCEDURE: PREOPERATIVE DIAGNOSIS: Pelvic relaxation, mainly cystocele. POSTOPERATIVE DIAGNOSIS: Pelvic relaxation, mainly cystocele. OPERATION PERFORMED: Total vaginal hysterectomy, vaginal bilateral salpingo-oophorectomy, anterior repair with Marie plication, cystoscopy. PRIMARY SURGEON: Vargas Wisdom MD. MATERIAL CONTROL CLERK: OR tech. ANESTHESIA: General endotracheal intubation, and Dr. Shaikh. ESTIMATED BLOOD LOSS: Less than 100 mL. COMPLICATIONS: None. FINDINGS: Prolapse, mainly cystocele. INDICATION FOR SURGERY: [place] referred to the admit note. PROCEDURE IN DETAIL: The patient was brought to the OR, properly identified, and after adequate level of anesthesia, the patient was placed in lithotomy position with an access to the abdomen and the vagina. The patient was prepped and draped in sterile fashion as usual. Straight catheter was used to empty the bladder. A short weighted speculum was placed in the vagina and single-tooth tenaculum applied to the cervix. Circular incision in the vaginal mucosa and around the cervix was done. Then, the posterior cul-de-sac was entered posteriorly with Haq seizures. The vagina and the peritoneum tacked posteriorly with 2-0 Vicryl. A short weighted speculum was replaced with an extended long weighted speculum. The uterosacral ligament from both sides was clamped with a curved Zeppelin, transected, suture ligated with 2-0 Vicryl, and held for further identification. The same thing was done with cardinal ligament, and then the cervical vesicle space entered anteriorly. The bladder retracted completely away from the operative field. The peritoneal cavity was entered and the broad ligament was clamped with a curved Zeppelin, transected, and suture ligated with 2-0 Vicryl pop-off. The uterine vessel suture ligated at this level. Then, the uterus delivered posteriorly and 90 degree curved zeppelin was used to clamp the superior pedicle. The tubes and the ovary included with the specimen. Then, the uterus, both tubes and ovary removed. The superior pedicle was tied twice with free tie on both sides. Inspection of the operative field shows no oozing, no bleeding. Then, we proceeded to close the vaginal cuff with 2-0 Vicryl continuous interlocking for hemostasis. Attention paid to the anterior vaginal wall and the anterior vaginal wall injected with copious amount of normal saline and opened as a midline, dissected laterally. The bladder was retracted and Marie plication performed using 2-0 Vicryl pop-off interrupted. Then, the excess vaginal mucosa trimmed at the midline, and the vaginal cuff was closed with 2-0 Vicryl continuous interlocking for hemostasis at the midline. While we were doing that, we asked Anesthesia personnel to give the patient fluorescein and then cystoscopy performed. The bladder was intact. Both ureteric orifices seen with the dye coming from both of them. Thus, the patency of both verified and satisfied. At this time, the procedure was ended. Instrument and sponge count were correct x2. The patient tolerated the procedure well and went to recovery room in stable general condition. MANFRED / CARLOS ENRIQUE /[id number]
[2018-08-02 05:55] LABS: CHLORIDE,CL 106 mmol/L (98-107); SODIUM,NA 140 mmol/L (136-145)
[2018-08-02] MEDS: Acetaminophen/oxyCODONE 325-5 MG Tab PO PRN ×2 (07:28→11:16)
--- NOTE | 2018-08-02 08:41 | PCM48HPAN ---
Post Anesthesia Note - EVALUATION WITHIN 48HRS OF ANESTHETIC Vital Signs in Normal Range: Yes Patient Participated in Evaluation: Yes Respiratory Function Stable: Yes Airway Patent: Yes Cardiovascular Function Stable: Yes Hydration Status Stable: Yes Pain Control Satisfactory: Yes Nausea and Vomiting Control Satisfactory: Yes Mental Status Recovered: Yes Pulse Rate: 82 SaO2: 98 Resp Rate: 16 Temperature: 36.5 C Blood Pressure: 118/66 - COMMENTS/OBSERVATIONS Free Text/Narrative:: Doing well. Pain control good. No nausea. No post problems noted.
[2018-08-02 11:41] VITALS: BP 116/58
--- NOTE | 2018-08-02 13:25 | PCM.SURGPN ---
- General Info Date of Service: 08/02/18 POD#: 1 Functional Status: Reports: Pain Controlled - Review of Systems General: Reports: No Symptoms HEENT: Reports: No Symptoms Pulmonary: Reports: No Symptoms Cardiovascular: Reports: No Symptoms Gastrointestinal: Reports: No Symptoms Genitourinary: Reports: No Symptoms Musculoskeletal: Reports: No Symptoms Skin: Reports: No Symptoms Neurological: Reports: No Symptoms Psychiatric: Reports: No Symptoms - Patient Data Vitals - Most Recent: Last Vital Signs Temp 36.5 C 08/02/18 11:53 Pulse 78 08/02/18 11:53 Resp 19 08/02/18 11:53 BP 116/58 L 08/02/18 11:53 Pulse Ox 97 08/02/18 11:53 Weight - Most Recent: 58.06 kg I&O - Last 24 Hours: Intake & Output 08/01/18 08/02/18 08/02/18 22:59 06:59 14:59 Intake Total 1140 1570 Output Total 275 1700 Balance 865 -130 Lab Results Last 24 Hrs: Laboratory Results - last 24 hr 07/31/18 08/02/18 08/02/18 Range/Units 15:26 05:25 05:25 WBC 7.32 (4.0-11.0) K/uL RBC 3.95 L (4.30-5.90) M/uL Hgb 11.2 L (12.0-16.0) g/dL Hct 34.2 L (36.0-46.0) % MCV 86.6 (80.0-98.0) fL MCH 28.4 (27.0-32.0) pg MCHC 32.7 (31.0-37.0) g/dL RDW Std Deviation 43.3 (28.0-62.0) fl RDW Coeff of Parth 14 (11.0-15.0) % Plt Count 217 (150-400) K/uL MPV 10.10 (7.40-12.00) fL Neut % (Auto) 71.5 (48.0-80.0) % Lymph % (Auto) 16.9 (16.0-40.0) % [place] % (Auto) 11.2 (0.0-15.0) % Eos % (Auto) 0.4 (0.0-7.0) % Baso % (Auto) 0.0 (0.0-1.5) % Neut # (Auto) 5.2 (1.4-5.7) K/uL Lymph # (Auto) 1.2 (0.6-2.4) K/uL [place] # (Auto) 0.8 (0.0-0.8) K/uL Eos # (Auto) 0.0 (0.0-0.7) K/uL Baso # (Auto) 0.0 (0.0-0.1) K/uL Nucleated RBC % 0.0 /100WBC Nucleated RBCs # 0 K/uL Sodium 140 (136-145) mmol/L Potassium 3.8 (3.5-5.1) mmol/L Chloride 106 (98-107) mmol/L Carbon Dioxide 29.5 (21.0-32.0) mmol/L BUN 15 (7.0-18.0) mg/dL Creatinine 0.8 (0.6-1.0) mg/dL Est Cr Clr Drug Dosing 49.53 mL/min Estimated GFR (MDRD) > 60.0 ml/min Glucose 131 H (74-106) mg/dL Calcium 8.1 L (8.5-10.1) mg/dL Antibody Screen POSITIVE Med Orders - Current: Current Medications Lactated Ringer's (Ringers, Lactated) 1,000 mls @ 125 mls/hr IV ASDIRECTED [facility] Last Admin: 08/01/18 08:05 Dose: 125 mls/hr Ketorolac Tromethamine (Toradol) 30 mg IVPUSH Q6H PRN PRN Reason: Pain (severe 7-10) Stop: 08/06/18 10:46 Morphine Sulfate (Morphine) 4 mg IVPUSH Q2H PRN PRN Reason: Pain (severe 7-10) Ondansetron HCl (Zofran) 4 mg IVPUSH Q6H PRN PRN Reason: Nausea/Vomiting Oxycodone/Acetaminophen (Percocet 325-5 Mg) 1 tab PO Q4H PRN PRN Reason: Pain (moderate 4-6) Last Admin: 08/02/18 11:16 Dose: 1 tab Oxycodone/Acetaminophen (Percocet 325-5 Mg) 2 tab PO Q4H PRN PRN Reason: Pain (moderate 4-6) Last Admin: 08/01/18 22:04 Dose: 2 tab Promethazine HCl (Phenergan) 25 mg IM Q6H PRN PRN Reason: Nausea/Vomiting Scopolamine (Transderm-Scop) 1.5 mg TRDERM Q72H PRN PRN Reason: Nausea Last Admin: 08/01/18 08:54 Dose: 1.5 mg Sodium Chloride (Saline Flush) 10 ml FLUSH ASDIRECTED PRN PRN Reason: Keep Vein Open Sodium Chloride (Saline Flush) 2.5 ml FLUSH ASDIRECTED PRN PRN Reason: Keep Vein Open Sodium Chloride (Normal Saline) 10 ml IV ASDIRECTED PRN PRN Reason: IV Use Discontinued Medications Cefazolin Sodium/Dextrose (Ancef) Confirm Administered Dose 2 gm IV .STK-MED ONE Stop: 08/01/18 07:30 Dexamethasone (Dexamethasone) Confirm Administered Dose 20 mg .ROUTE .STK-MED ONE Stop: 08/01/18 07:32 Ephedrine Sulfate (Ephedrine Sulfate) Confirm Administered Dose 50 mg .ROUTE .STK-MED ONE Stop: 08/01/18 09:38 Fentanyl (Sublimaze) Confirm Administered Dose 250 mcg .ROUTE .STK-MED ONE Stop: 08/01/18 07:29 Fentanyl (Sublimaze) 50 mcg IVPUSH Q5M PRN PRN Reason: Pain (severe 7-10) Stop: 08/01/18 12:30 Last Admin: 08/01/18 11:23 Dose: 50 mcg Fluorescein Sodium (Ak-Fluor) Confirm Administered Dose 5 ml .ROUTE .STK-MED ONE Stop: 08/01/18 07:46 Glycopyrrolate (Robinul) Confirm Administered Dose 0.4 mg .ROUTE .STK-MED ONE Stop: 08/01/18 07:34 Cefazolin Sodium/Dextrose 2 gm (/ Premix) 50 mls @ 100 mls/hr IV ONETIME ONE Stop: 07/31/18 13:49 Last Admin: 08/01/18 11:59 Dose: Not Given Acetaminophen (Ofirmev) Confirm Administered Dose 100 mls @ as directed IV .STK- MED ONE Stop: 08/01/18 07:27 Lidocaine HCl (Xylocaine-Mpf 1%) Confirm Administered Dose 5 mls @ as directed .ROUTE .STK-MED ONE Stop: 08/01/18 07:32 Sodium Chloride (Normal Saline) Confirm Administered Dose 20 mls @ as directed .ROUTE .[facility]-MED ONE Stop: 08/01/18 09:38 Ketorolac Tromethamine (Toradol) 30 mg IVPUSH ONETIME ONE Stop: 08/01/18 10:47 Last Admin: 08/01/18 11:59 Dose: Not Given Midazolam HCl (Versed 1 Mg/Ml) Confirm Administered Dose 2 mg .ROUTE .STK-MED ONE Stop: 08/01/18 07:29 Neostigmine Methylsulfate (Neostigmine) Confirm Administered Dose 5 mg .ROUTE .STK-MED ONE Stop: 08/01/18 07:34 Ondansetron HCl (Zofran) Confirm Administered Dose 4 mg .ROUTE .[facility]-MED ONE Stop: 08/01/18 07:32 Propofol (Diprivan 20 Ml) Confirm Administered Dose 200 mg .ROUTE .ST-MED ONE Stop: 08/01/18 07:29 Rocuronium [place] (Zemuron) Confirm Administered Dose 100 mg .ROUTE .ST-MED ONE Stop: 08/01/18 07:33 Scopolamine (Transderm-Scop) Confirm Administered Dose 1.5 mg .ROUTE .[facility]-MED ONE Stop: 08/01/18 08:54 Last Admin: 08/01/18 11:59 Dose: Not Given Succinylcholine Chloride (Succinylcholine Chloride) Confirm Administered Dose 200 mg .ROUTE .ST-MED ONE Stop: 08/01/18 07:33 - Exam Wound/Incisions: Healing Well General: Alert, Oriented HEENT: Pupils Equal Neck: Supple Lungs: Clear to Auscultation, Normal Respiratory Effort Cardiovascular: Regular Rate, Regular Rhythm GI/Abdominal Exam: Normal Bowel Sounds, Soft, Non-Tender, No Organomegaly, No Distention, No Abnormal Bruit, No Mass, Pelvis Stable Extremities: Normal Inspection, Normal Range of Motion, Non-Tender, No Pedal Edema, Normal Capillary Refill Skin: Warm, Dry, Intact Neurological: No New Focal Deficit Psy/Mental Status: Alert, Normal Affect, Normal Mood - Problem List Review Problem List Initiated/Reviewed/Updated: Yes - My Orders Last 24 Hours: Medication Orders Lactated Ringer's (Ringers, Lactated) 1,000 mls @ 125 mls/hr IV ASDIRECTED ABAD Last Admin: 08/01/18 08:05 Dose: 125 mls/hr Ketorolac Tromethamine (Toradol) 30 mg IVPUSH Q6H PRN PRN Reason: Pain (severe 7-10) Stop: 08/06/18 10:46 Morphine Sulfate (Morphine) 4 mg IVPUSH Q2H PRN PRN Reason: Pain (severe 7-10) Ondansetron HCl (Zofran) 4 mg IVPUSH Q6H PRN PRN Reason: Nausea/Vomiting Oxycodone/Acetaminophen (Percocet 325-5 Mg) 1 tab PO Q4H PRN PRN Reason: Pain (moderate 4-6) Last Admin: 08/02/18 11:16 Dose: 1 tab Admin: 08/02/18 07:28 Dose: 1 tab Oxycodone/Acetaminophen (Percocet 325-5 Mg) 2 tab PO Q4H PRN PRN Reason: Pain (moderate 4-6) Last Admin: 08/01/18 22:04 Dose: 2 tab Admin: 08/01/18 13:06 Dose: 2 tab Promethazine HCl (Phenergan) 25 mg IM Q6H PRN PRN Reason: Nausea/Vomiting Scopolamine (Transderm-Scop) 1.5 mg TRDERM Q72H PRN PRN Reason: Nausea Last Admin: 08/01/18 08:54 Dose: 1.5 mg Sodium Chloride (Saline Flush) 10 ml FLUSH ASDIRECTED PRN PRN Reason: Keep Vein Open Sodium Chloride (Saline Flush) 2.5 ml FLUSH ASDIRECTED PRN PRN Reason: Keep Vein Open Sodium Chloride (Normal Saline) 10 ml IV ASDIRECTED PRN PRN Reason: IV Use - Assessment Assessment (Free Text/Narrative):: Status post TVH BSO. Anterior repair postoperative day #1 patient is doing well vaginal spike removed and catheter was removed patient is voiding without any problem no vaginal bleeding - Plan Plan (Free Text/Narrative):: Patient will be sent home with the postvasectomy instruction. She was given a prescription for Narco 5 for postoperative pain there is no obstruction on her diet she is to come to the office 1 week after her discharge for postoperative checkup
== END 2018-08-02 14:45 | disposition home or self-care (01) ==
LOC: MW.SDS 11:25 → MW.MS 11:27 → MW.SDS 08-02 14:45
PROVIDERS: ATTEND Obstetrics & Gynecology
DX: N81.10 Cystocele, unspecified (principal); N83.322 Acquired atrophy of left fallopian tube; N83.321 Acquired atrophy of right fallopian tube; N81.89 Other female genital prolapse; E78.00 Pure hypercholesterolemia, unspecified; Z79.899 Other long term (current) drug therapy
CPT/HCPCS: 36415; 57240; 58262; 80048; 85025; 85027; 86850; 86870; 86900; 86901; 86920; 86921; 86922; A9270; J0131; J0330; J0690; J1100; J2001; J2250; J2405; J2704; J3010; J3490; J7120; 00944; 88307

== ENCOUNTER 2019-01-20 22:14 | Emergency (ER) | payer MEDICARE, OTHER ==
[2019-01-20] MEDS ORDERED: Ondansetron 4 MG/2 ML SDV IVPUSH ONE (22:23)
--- NOTE | 2019-01-20 22:23 | EDM.PDOC ---
ED HPI GENERAL MEDICAL PROBLEM - General Chief Complaint: General Stated Complaint: RINGING IN LFT EAR,HEADACHE ,NAUSEA Time Seen by Provider: 01/20/19 22:20 - History of Present Illness INITIAL COMMENTS - FREE TEXT/NARRATIVE: HISTORY AND PHYSICAL: History of present illness: Patient's a 73-year-old white female with history of anxiety who presents with a concern of dizziness and ringing in her ears over the last week she's had some nausea with this she denies head trauma denies neck pain she had no vomiting she denies chest pain shortness of breath palpitations or other concern. Patient states she has had cold symptoms recently. Review of systems: As per history of present illness and below otherwise all systems reviewed and negative. Past medical history: As per history of present illness and as reviewed below otherwise noncontributory. Surgical history: As per history of present illness and as reviewed below otherwise noncontributory. Social history: No reported history of drug or alcohol abuse. Family history: As per history of present illness and as reviewed below otherwise noncontributory. Physical exam: HEENT: Atraumatic, normocephalic, pupils reactive, negative for conjunctival pallor or scleral icterus, mucous membranes moist, throat clear, neck supple, nontender, trachea midline. Lungs: Clear to auscultation, breath sounds equal bilaterally, chest nontender. TM is clear bilaterally as are external auditory canal Heart: S1S2, regular, negative for clicks, rubs, or JVD. Abdomen: Soft, nondistended, nontender. Negative for masses or hepatosplenomegaly. Negative for costovertebral tenderness. Pelvis: Stable nontender. Genitourinary: Deferred. Rectal: Deferred. Extremities: Atraumatic, negative for cords or calf pain. Neurovascular unremarkable. Neuro: Awake, alert, anxious, oriented. Cranial nerves II through XII unremarkable. Cerebellum unremarkable. Motor and sensory unremarkable throughout. Exam nonfocal. Diagnostics: CBC CMP troponin PT/INR chest x-ray EKG influenza screen CT brain UA Therapeutics: Saline 1 L bolus Zofran 4 mg IV meclizine 25 mg by mouth Impression: #1 dizziness #2 anxiety #3 rule out viral syndrome Definitive disposition and diagnosis as appropriate pending reevaluation and review of above. - Related Data Allergies Allergy/AdvReac Type Severity Reaction Status Date / Time No Known Allergies Allergy Verified 01/20/19 22:19 Home Meds: Home Meds ClonazePAM [KlonoPIN] 0.5 mg PO BEDTIME 09/23/16 [History] Desvenlafaxine Succinate [Pristiq] 50 mg PO DAILY 09/23/16 [History] Multivitamin [Multivitamins] 1 tab PO DAILY 07/09/17 [History] atorvaSTATin [Lipitor] 40 mg PO BEDTIME 07/30/18 [History] Past Medical History - Past Health History Medical/Surgical History: Denies Medical/Surgical History HEENT History: Reports: Other (See Below) Other HEENT History: wears glasses, has partial lower removable denture Cardiovascular History: Reports: High Cholesterol Respiratory History: Reports: None Gastrointestinal History: Reports: None Genitourinary History: Reports: UTI, Recurrent Other Genitourinary History: UTI's in recent years [employer] History: Reports: Musculoskeletal History: Reports: Osteoporosis Neurological History: Reports: None Psychiatric History: Reports: Anxiety, Depression Other Psychiatric History: on medication Endocrine/Metabolic History: Reports: None Hematologic History: Reports: Blood Transfusion(s) Other Hematologic History: had a blood transfusion from her father as a child ( post tonsillectomy) Immunologic History: Reports: None Oncologic (Cancer) History: Reports: None Dermatologic History: Reports: None - Infectious Disease History Infectious Disease History: Reports: Chicken Pox - Past Surgical History Head Surgeries/Procedures: Reports: None HEENT Surgical History: Reports: Tonsillectomy Cardiovascular Surgical History: Reports: None Respiratory Surgical History: Reports: None GI Surgical History: Reports: Appendectomy, Cholecystectomy, Colonoscopy Female Surgical History: Reports: None Endocrine Surgical History: Reports: None Neurological Surgical History: Reports: Lumbar Spine Musculoskeletal Surgical History: Reports: None Oncologic Surgical History: Reports: None Dermatological Surgical History: Reports: None Social & Family History - Family History Family Medical History: Noncontributory Cardiac: Reports: CAD, [place] - Caffeine Use Caffeine Use: Reports: Coffee Caffeine Use Comment: 3 cups coffee/day ED ROS GENERAL - Review of Systems Review Of Systems: Comprehensive ROS is negative, except as noted in HPI. ED EXAM, GENERAL - Physical Exam Exam: See Below (Dictation) Course - Vital Signs Text/Narrative:: Patient emergently murmur course has been unremarkable diagnostics were negative and patient has improvement I discussed with patient admission for observation she declines requests discharge home [facility] and close follow-up with her private doctor impression remains #1 dizziness Last Recorded V/S: Last Vital Signs Temp 36.1 C 01/20/19 22:15 Pulse 70 01/20/19 22:45 Resp 18 01/20/19 22:45 BP 126/59 L 01/20/19 22:45 Pulse Ox 94 L 01/20/19 22:45 - Orders/Labs/Meds Orders: Active Orders 24 hr Category Date Time Status Cardiac Monitoring [RC] . DIRECTED Care 01/20/19 22:22 Active EKG Documentation Completion [RC] STAT Care 01/20/19 22:22 Active Sodium Chloride 0.9% [Normal Saline] 1,000 ml Med 01/20/19 22:30 Active IV ASDIRECTED Medication Orders Sodium Chloride (Normal Saline) 1,000 mls @ 999 mls/hr IV ASDIRECTED ABAD Last Admin: 01/20/19 22:32 Dose: 999 mls/hr Labs: Laboratory Tests 01/20/19 01/20/19 01/20/19 Range/Units 22:25 22:25 22:25 WBC 9.82 (4.0-11.0) K/uL RBC 4.63 (4.30-5.90) M/uL Hgb 13.3 (12.0-16.0) g/dL Hct 39.3 (36.0-46.0) % MCV 84.9 (80.0-98.0) fL MCH 28.7 (27.0-32.0) pg MCHC 33.8 (31.0-37.0) g/dL RDW Std Deviation 40.4 (28.0-62.0) fl RDW Coeff of Parth 13 (11.0-15.0) % Plt Count 268 (150-400) K/uL MPV 10.10 (7.40-12.00) fL Neut % (Auto) 74.2 (48.0-80.0) % Lymph % (Auto) 14.8 L (16.0-40.0) % [place] % (Auto) 7.7 (0.0-15.0) % Eos % (Auto) 3.1 (0.0-7.0) % Baso % (Auto) 0.2 (0.0-1.5) % Neut # (Auto) 7.3 H (1.4-5.7) K/uL Lymph # (Auto) 1.5 (0.6-2.4) K/uL [place] # (Auto) 0.8 (0.0-0.8) K/uL Eos # (Auto) 0.3 (0.0-0.7) K/uL Baso # (Auto) 0.0 (0.0-0.1) K/uL Nucleated RBC % 0.0 /100WBC Nucleated RBCs # 0 K/uL INR 0.92 Sodium 138 (136-145) mmol/L Potassium 3.9 (3.5-5.1) mmol/L Chloride 104 (98-107) mmol/L Carbon Dioxide 28.2 (21.0-32.0) mmol/L BUN 19 H (7.0-18.0) mg/dL Creatinine 0.9 (0.6-1.0) mg/dL Est Cr Clr Drug Dosing 44.03 mL/min Estimated GFR (MDRD) > 60.0 ml/min Glucose 107 H (74-106) mg/dL Calcium 8.9 (8.5-10.1) mg/dL Total Bilirubin 0.3 (0.2-1.0) mg/dL AST 24 (15-37) IU/L ALT 31 (14-63) IU/L Alkaline Phosphatase 72 (46-116) U/L Troponin I < 0.050 (0.000-0.056) ng/mL Total Protein 7.1 (6.4-8.2) g/dL Albumin 3.5 (3.4-5.0) g/dL Globulin 3.6 (2.6-4.0) g/dL Albumin/Globulin Ratio 1.0 (0.9-1.6) Urine Color Urine Appearance Urine pH (5.0-8.0) Ur Specific [place] (1.001-1.035) Urine Protein (NEGATIVE) mg/dL Urine Glucose (UA) (NEGATIVE) mg/dL Urine Ketones (NEGATIVE) mg/dL Urine Occult Blood (NEGATIVE) Urine Nitrite (NEGATIVE) Urine Bilirubin (NEGATIVE) Urine Urobilinogen (<2.0) EU/dL Ur Leukocyte Esterase (NEGATIVE) Urine RBC (0-2/HPF) Urine WBC (0-5/HPF) Ur Epithelial Cells (NONE-FEW) Urine Bacteria (NEGATIVE) Urine Mucus (NONE-MOD) 01/20/19 Range/Units 22:28 WBC (4.0-11.0) K/uL RBC (4.30-5.90) M/uL Hgb (12.0-16.0) g/dL Hct (36.0-46.0) % MCV (80.0-98.0) fL MCH (27.0-32.0) pg MCHC (31.0-37.0) g/dL RDW Std Deviation (28.0-62.0) fl RDW Coeff of Parth (11.0-15.0) % Plt Count (150-400) K/uL MPV (7.40-12.00) fL Neut % (Auto) (48.0-80.0) % Lymph % (Auto) (16.0-40.0) % [place] % (Auto) (0.0-15.0) % Eos % (Auto) (0.0-7.0) % Baso % (Auto) (0.0-1.5) % Neut # (Auto) (1.4-5.7) K/uL Lymph # (Auto) (0.6-2.4) K/uL [place] # (Auto) (0.0-0.8) K/uL Eos # (Auto) (0.0-0.7) K/uL Baso # (Auto) (0.0-0.1) K/uL Nucleated RBC % /100WBC Nucleated RBCs # K/uL INR Sodium (136-145) mmol/L Potassium (3.5-5.1) mmol/L Chloride (98-107) mmol/L Carbon Dioxide (21.0-32.0) mmol/L BUN (7.0-18.0) mg/dL Creatinine (0.6-1.0) mg/dL Est Cr Clr Drug Dosing mL/min Estimated GFR (MDRD) ml/min Glucose (74-106) mg/dL Calcium (8.5-10.1) mg/dL Total Bilirubin (0.2-1.0) mg/dL AST (15-37) IU/L ALT (14-63) IU/L Alkaline Phosphatase (46-116) U/L Troponin I (0.000-0.056) ng/mL Total Protein (6.4-8.2) g/dL Albumin (3.4-5.0) g/dL Globulin (2.6-4.0) g/dL Albumin/Globulin Ratio (0.9-1.6) Urine Color YELLOW Urine Appearance CLEAR Urine pH 6.0 (5.0-8.0) Ur Specific [place] <= 1.005 (1.001-1.035) Urine Protein NEGATIVE (NEGATIVE) mg/dL Urine Glucose (UA) NEGATIVE (NEGATIVE) mg/dL Urine Ketones NEGATIVE (NEGATIVE) mg/dL Urine Occult Blood TRACE-INTACT H (NEGATIVE) Urine Nitrite NEGATIVE (NEGATIVE) Urine Bilirubin NEGATIVE (NEGATIVE) Urine Urobilinogen 0.2 (<2.0) EU/dL Ur Leukocyte Esterase NEGATIVE (NEGATIVE) Urine RBC NONE SEEN (0-2/HPF) Urine WBC 0-1 (0-5/HPF) Ur Epithelial Cells RARE (NONE-FEW) Urine Bacteria RARE (NEGATIVE) Urine Mucus LIGHT (NONE-MOD) Meds: Medications Generic Name Dose Route Start Last Admin Trade Name Freq PRN Reason Stop Dose Admin Sodium Chloride 1,000 mls @ 999 mls/hr 01/20/19 22:30 01/20/19 22:32 Normal Saline IV 999 mls/hr ASDIRECTED ABAD Administration Discontinued Medications Generic Name Dose Route Start Last Admin Trade Name Freq PRN Reason Stop Dose Admin Meclizine HCl 25 mg 01/20/19 22:24 01/20/19 22:34 Antivert PO 01/20/19 22:25 25 mg ONETIME ONE Administration Ondansetron HCl 4 mg 01/20/19 22:23 01/20/19 22:34 Zofran IVPUSH 01/20/19 22:24 4 mg ONETIME ONE Administration Departure - Departure Time of Disposition: 23:20 Disposition: Home, Self-Care 01 Condition: Good Clinical Impression: Dizziness, Encounter for medical screening examination - Discharge Information Referrals: PCP,None [Primary Care Provider] - Forms: ED Department Discharge Additional Instructions: The following information is given to patients seen in the emergency department who are being discharged to home. This information is to outline your options for follow-up care. We provide all patients seen in our emergency department with a follow-up referral. The need for follow-up, as well as the timing and circumstances, are variable depending upon the specifics of your emergency department visit. If you don't have a primary care physician on staff, we will provide you with a referral. We always advise you to contact your personal physician following an emergency department visit to inform them of the circumstance of the visit and for follow-up with them and/or the need for any referrals to a consulting specialist. The emergency department will also refer you to a specialist when appropriate. This referral assures that you have the opportunity for followup care with a specialist. All of these measure are taken in an effort to provide you with optimal care, which includes your followup. Under all circumstances we always encourage you to contact your private physician who remains a resource for coordinating your care. When calling for followup care, please make the office aware that this follow-up is from your recent emergency room visit. If for any reason you are refused follow-up, please contact the [facility] emergency department at and asked to speak to the emergency department charge nurse. Meclizine as prescribed follow primary medical doctor and return as needed as discussed - My Orders Last 24 Hours: My Active Orders 01/20/19 22:22 Cardiac Monitoring [RC] . DIRECTED EKG Documentation Completion [RC] STAT 01/20/19 22:30 Sodium Chloride 0.9% [Normal Saline] 1,000 ml IV ASDIRECTED - Assessment/Plan Last 24 Hours: My Active Orders 01/20/19 22:22 Cardiac Monitoring [RC] . DIRECTED EKG Documentation Completion [RC] STAT 01/20/19 22:30 Sodium Chloride 0.9% [Normal Saline] 1,000 ml IV ASDIRECTED
[2019-01-20] MEDS ORDERED: Meclizine 25 MG Tab PO ONE (22:24)
[2019-01-20] MEDS ORDERED: Sodium Chloride 0.9% 1,000 ML IV SCH (22:30)
[2019-01-20 23:04] LABS: BLOOD UREA NITROGEN,BUN 19 mg/dL (7.0-18.0); CARBON DIOXIDE,CO2 28.2 mmol/L (21.0-32.0); CHLORIDE,CL 104 mmol/L (98-107); GLUCOSE RANDOM 107 mg/dL (74-106); POTASSIUM,K 3.9 mmol/L (3.5-5.1); SODIUM,NA 138 mmol/L (136-145)
--- NOTE | 2019-01-20 23:08 | CT ---
INDICATION: Headache and dizziness TECHNIQUE: CT head without contrast. COMPARISON: None. FINDINGS: CSF spaces: Within normal limits for age. Brain parenchyma: Bass-white differentiation is distinct. No intracranial bleed or mass effect. Skull base and calvarium: The visualized paranasal sinuses and mastoid air cells demonstrate no acute or significant findings. The visualized orbits are grossly unremarkable. No skull fractures. IMPRESSION: Unremarkable noncontrast head CT. Please note that all CT scans at this facility use dose modulation, iterative reconstruction, and/or weight-based dosing when appropriate to reduce radiation dose to as low as reasonably achievable. Dictated by Ancelmo Calabrese MD @ Jan 20 2019 11:04PM Signed by Dr. Ancelmo Calabrese @ Jan 20 2019 11:07PM
--- NOTE | 2019-01-20 23:16 | CR ---
Indication: Dizziness Technique: Chest 1 view Comparison: 09/27/2016 Findings/Impression: Cardiovascular and mediastinum: Unremarkable cardiomediastinal silhouette. Lungs and pleural space: Hyperinflation again noted suggestive of COPD. Mild interstitial scarring. An apparent 6 mm left apical nodular opacity projecting over the clavicle and posterior 3rd rib, versus superimposition of shadows. Follow-up with apical and lordotic views. No pleural effusions. Bones and soft tissues: No significant change. Mild thoracic scoliosis. Cholecystectomy clips. Dictated by Orestes Adame MD @ 01/20/2019 11:13:28 PM Dictated by: Orestes Adame MD @ 01/20/2019 23:14:06 (Electronically Signed)
[2019-01-20 23:23] VITALS: BP 108/61; PULSE 74
== END 2019-01-20 23:30 | disposition home or self-care (01) ==
LOC: MW.ED 22:14
DX: R42 Dizziness and giddiness (principal); F41.9 Anxiety disorder, unspecified; E78.00 Pure hypercholesterolemia, unspecified; F32.9 Major depressive disorder, single episode, unspecified; Z79.899 Other long term (current) drug therapy
CPT/HCPCS: 70450; 71045; 80053; 81001; 84484; 85025; 85610; 87804; 93005; 96374; 99284; A9270; J2405; J7040; 99283

== ENCOUNTER 2019-11-17 19:12 | Emergency (ER) | payer MEDICARE, OTHER ==
[2019-11-17] MEDS ORDERED: Sodium Chloride 0.9% 10 ML Syringe FLUSH PRN (19:40)
[2019-11-17] MEDS ORDERED: LORazepam 2 MG/ML SDV IVPUSH ONE (19:40)
[2019-11-17] MEDS ORDERED: Sodium Chloride 0.9% 2.5 ML Syringe FLUSH PRN (19:40)
--- NOTE | 2019-11-17 19:51 | EDM.PDOC ---
ED HPI GENERAL MEDICAL PROBLEM - General Chief Complaint: Chest Pain Stated Complaint: CHEST PAIN Time Seen by Provider: 11/17/19 19:33 - History of Present Illness INITIAL COMMENTS - FREE TEXT/NARRATIVE: HISTORY AND PHYSICAL: History of present illness: This is a healthy 74-year-old female with no history significant for hypertension, diabetes, liver, lung, kidney problems who presents the ER today complaining of intermittent episodes of left-sided chest pain that has been coming on for the last 3 days. Patient reports that the pain usually comes on while she is at rest. She reports that she has some pain and discomfort to her left shoulder as well as some associated nausea. Patient denies any diaphoresis, shortness of breath, vomiting, exertional pain. Patient reports that nothing relieves or exacerbates her pain or discomfort. Patient denies any prior history of coronary artery disease. Patient is on cholesterol medications but does not remember if she does have high cholesterol or not. Patient reports that she does have a history significant for severe anxiety and she feels that when she starts becoming anxious that is when the pain starts in her chest. Review of systems: As per history of present illness and below otherwise all systems reviewed and negative. Past medical history: As per history of present illness and as reviewed below otherwise noncontributory. Surgical history: As per history of present illness and as reviewed below otherwise noncontributory. Social history: No reported history of drug or alcohol abuse. Family history: As per history of present illness and as reviewed below otherwise noncontributory. Physical exam: Well-developed well-nourished 74-year-old female who appears to be in no acute distress but is tearful in the ER and appears to be somewhat anxious. HEENT: Atraumatic, normocephalic, pupils reactive, negative for conjunctival pallor or scleral icterus, mucous membranes moist, throat clear, neck supple, nontender, trachea midline. Lungs: Clear to auscultation, breath sounds equal bilaterally, chest nontender. Heart: S1S2, regular, negative for clicks, rubs, or JVD. Patient was tenderness to palpation to her left anterior chest wall. Abdomen: Soft, nondistended, nontender. Negative for masses or hepatosplenomegaly. Negative for costovertebral tenderness. Pelvis: Stable nontender. Genitourinary: Deferred. Rectal: Deferred. Extremities: Atraumatic, negative for cords or calf pain. Neurovascular unremarkable. Neuro: Awake, alert, oriented. Cranial nerves II through XII unremarkable. Cerebellum unremarkable. Motor and sensory unremarkable throughout. Exam nonfocal. Diagnostics: CBC, CMP, troponin, chest x-ray, EKG EKG: Normal sinus rhythm heart rate of [address]-T wave abnormalities Normal axis No evidence of ST elevation [place] As interpreted by ER physician: [place] EKG #2: EKG: Normal sinus rhythm heart rate of [address]-T wave abnormalities Normal axis No evidence of ST elevation [place] As interpreted by ER physician: [place] Chest Xray: Normal cardiac silhouette No infiltrates or effusions identified. No PTX No evidence of acute bony fracture. As interpreted by ER MD: [facility] [employer]: Ativan 1 mg IV Assessment and plan: This is a 74-year-old female who presents the ER today with atypical chest wall pain. Patient reports the pain has been intermittent in nature for the last 3 to 4 days. Patient has a normal-appearing EKG. Patient has a normal physical exam except for some mild reproducible tenderness to her left anterior chest wall. Patient will have labs drawn and will be reevaluated. Patient will likely need a 2-hour troponin level for further evaluation of her chest pain. Patient does appear to be low risk. Heart Score: History: 0 (2, Highly Suspicious; 1, Moderate Suspicious; 0: Slightly Suspicious) EK (2, Significant ST depression; 1: Non specific repolarization disturbance; 0, Normal) Age: 2 (2, = 65; 1: 45-65; 0, =45) Risk factors: 0 (2, =3 risk factors or history of atherosclerotic disease; 1, 1-2 risk factors; 0, no risk factors) Risk Factors include hypercholesterolemia, HTN, DM, smoking, family history, obesity Troponin: 0 (2, (=3x normal limit; 1, 1-3 x normal limit; 0 = normal limit) Total Heart Score: 2 Management Scores 0-3: 0.9-1.7% risk of adverse cardiac event. In the HEART Score study, these patients were discharged (0.99% in the retrospective study, 1.7% in the prospective study) Scores 4-6: 12-16.6% risk of adverse cardiac event. In the HEART Score study, these patients were admitted to the hospital. (11.6% retrospective, 16.6% prospective) Scores =7: 50-65% risk of adverse cardiac event. In the HEART Score study, these patients were candidates for early invasive measures. (65.2% retrospective, 50.1% prospective) 10:53 PM: Patient reevaluated by me multiple times throughout her ER visit. Patient reports her pain is completely resolved after the Ativan. Patient CTA of her chest reveals no acute pathology. I have discussed with her and given her a copy of the CT report and instructed her to follow-up with her doctor for repeat CT scan in 1 year. There is no evidence of PE or dissection. Patient had a 2-hour troponin level which is negative for evidence of cardiac damage. Patient's repeat EKG reveals no significant changes from her initial EKG. Patient is extremely low risk for cardiac cause for chest pain. I have discussed with the patient and she at this time opts are discharged home with outpatient follow-up. Reassessment at the time of disposition demonstrates that the patient is in no acute distress. The patient has remained stable throughout the entire ED visit and is without objective evidence for acute process requiring urgent intervention or hospitalization. The patient is stable for discharge, counseling is provided as documented above, discussed symptomatic treatment and specific conditions for return. I have spoken with the patient/caregive and discussed todays findings, in a ddition to providing specific details for the plan of care. Questions are answered and there is agreement with the plan. Definitive disposition and diagnosis as appropriate pending reevaluation and re view of above. Headache Pain Score (Numeric/FACES): 4 chest pain Pain Score (Numeric/FACES): 1 - Related Data Allergies Allergy/AdvReac Type Severity Reaction Status Date / Time No Known Allergies Allergy Verified 11/17/19 19:25 Home Meds: Home Meds ClonazePAM [KlonoPIN] 0.5 mg PO BEDTIME 09/23/16 [History] Desvenlafaxine Succinate [Pristiq] 50 mg PO DAILY 09/23/16 [History] Multivitamin [Multivitamins] 1 tab PO DAILY 07/09/17 [History] atorvaSTATin [Lipitor] 40 mg PO BEDTIME 07/30/18 [History] Past Medical History - Past Health History Medical/Surgical History: Denies Medical/Surgical History HEENT History: Reports: Other (See Below) Other HEENT History: wears glasses, has partial lower removable denture Cardiovascular History: Reports: High Cholesterol Respiratory History: Reports: None Gastrointestinal History: Reports: None Genitourinary History: Reports: UTI, Recurrent Other Genitourinary History: UTI's in recent years 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: Musculoskeletal History: Reports: Osteoporosis Neurological History: Reports: None Psychiatric History: Reports: Anxiety, Depression Other Psychiatric History: on medication Endocrine/Metabolic History: Reports: None 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 Hematologic History: Reports: Blood Transfusion(s) Other Hematologic History: had a blood transfusion from her father as a child (post tonsillectomy) Immunologic History: Reports: None Oncologic (Cancer) History: Reports: None Dermatologic History: Reports: None - Infectious Disease History Infectious Disease History: Reports: Chicken Pox - Past Surgical History Head Surgeries/Procedures: Reports: None HEENT Surgical History: Reports: Tonsillectomy Cardiovascular Surgical History: Reports: None Respiratory Surgical History: Reports: None GI Surgical History: Reports: Appendectomy, Cholecystectomy, Colonoscopy Female Surgical History: Reports: None Endocrine Surgical History: Reports: None Neurological Surgical History: Reports: Lumbar Spine Musculoskeletal Surgical History: Reports: None Oncologic Surgical History: Reports: None Dermatological Surgical History: Reports: None Social & Family History - Family History Family Medical History: Noncontributory Cardiac: Reports: CAD, [place] - Caffeine Use Caffeine Use: Reports: Coffee Caffeine Use Comment: 3 cups coffee/day - Recreational Drug Use Recreational Drug Use: Yes ED ROS GENERAL - Review of Systems Review Of Systems: See Below ED EXAM, GENERAL - Physical Exam Exam: See Below Course - Vital Signs Last Recorded V/S: Last Vital Signs Temp 98.1 F 11/17/19 23:05 Pulse 87 11/17/19 23:05 Resp 16 11/17/19 23:05 BP 113/67 11/17/19 23:05 Pulse Ox 96 11/17/19 23:05 - Orders/Labs/Meds Orders: Active Orders 24 hr Category Date Time Status Saline Lock Insert [OM.PC] Stat Oth 11/17/19 19:42 Ordered Labs: Laboratory Tests 11/17/19 11/17/19 11/17/19 Range/Units 19:17 19:17 19:17 WBC 6.40 (4.0-11.0) K/uL RBC 4.90 (4.30-5.90) M/uL Hgb 14.4 (12.0-16.0) g/dL Hct 42.8 (36.0-46.0) % MCV 87.3 (80.0-98.0) fL MCH 29.4 (27.0-32.0) pg MCHC 33.6 (31.0-37.0) g/dL RDW Std Deviation 41.9 (28.0-62.0) fl RDW Coeff of Parth 13 (11.0-15.0) % Plt Count 230 (150-400) K/uL MPV 10.20 (7.40-12.00) fL Neut % (Auto) 47.7 L (48.0-80.0) % Lymph % (Auto) 34.5 (16.0-40.0) % Meagher % (Auto) 12.8 (0.0-15.0) % Eos % (Auto) 4.7 (0.0-7.0) % Baso % (Auto) 0.3 (0.0-1.5) % Neut # (Auto) 3.1 (1.4-5.7) K/uL Lymph # (Auto) 2.2 (0.6-2.4) K/uL Meagher # (Auto) 0.8 (0.0-0.8) K/uL Eos # (Auto) 0.3 (0.0-0.7) K/uL Baso # (Auto) 0.0 (0.0-0.1) K/uL Nucleated RBC % 0.0 /100WBC Nucleated RBCs # 0 K/uL D-Dimer, Quantitative 0.57 H (0.0-0.50) mg/L FEU Sodium 142 (136-145) mmol/L Potassium 4.0 (3.5-5.1) mmol/L Chloride 105 (98-107) mmol/L Carbon Dioxide 26.3 (21.0-32.0) mmol/L BUN 23 H (7.0-18.0) mg/dL Creatinine 1.0 (0.6-1.0) mg/dL Est Cr Clr Drug Dosing 39.04 mL/min Estimated GFR (MDRD) 54.2 ml/min Glucose 142 H (74-106) mg/dL Calcium 9.4 (8.5-10.1) mg/dL Total Bilirubin 0.4 (0.2-1.0) mg/dL AST 28 (15-37) IU/L ALT 41 (14-63) IU/L Alkaline Phosphatase 81 (46-116) U/L Troponin I < 0.050 (0.000-0.056) ng/mL Total Protein 7.2 (6.4-8.2) g/dL Albumin 4.0 (3.4-5.0) g/dL Globulin 3.2 (2.6-4.0) g/dL Albumin/Globulin Ratio 1.3 (0.9-1.6) 11/17/19 Range/Units 22:12 WBC (4.0-11.0) K/uL RBC (4.30-5.90) M/uL Hgb (12.0-16.0) g/dL Hct (36.0-46.0) % MCV (80.0-98.0) fL MCH (27.0-32.0) pg MCHC (31.0-37.0) g/dL RDW Std Deviation (28.0-62.0) fl RDW Coeff of Parth (11.0-15.0) % Plt Count (150-400) K/uL MPV (7.40-12.00) fL Neut % (Auto) (48.0-80.0) % Lymph % (Auto) (16.0-40.0) % Meagher % (Auto) (0.0-15.0) % Eos % (Auto) (0.0-7.0) % Baso % (Auto) (0.0-1.5) % Neut # (Auto) (1.4-5.7) K/uL Lymph # (Auto) (0.6-2.4) K/uL Meagher # (Auto) (0.0-0.8) K/uL Eos # (Auto) (0.0-0.7) K/uL Baso # (Auto) (0.0-0.1) K/uL Nucleated RBC % /100WBC Nucleated RBCs # K/uL D-Dimer, Quantitative (0.0-0.50) mg/L FEU Sodium (136-145) mmol/L Potassium (3.5-5.1) mmol/L Chloride (98-107) mmol/L Carbon Dioxide (21.0-32.0) mmol/L BUN (7.0-18.0) mg/dL Creatinine (0.6-1.0) mg/dL Est Cr Clr Drug Dosing mL/min Estimated GFR (MDRD) ml/min Glucose (74-106) mg/dL Calcium (8.5-10.1) mg/dL Total Bilirubin (0.2-1.0) mg/dL AST (15-37) IU/L ALT (14-63) IU/L Alkaline Phosphatase (46-116) U/L Troponin I < 0.050 (0.000-0.056) ng/mL Total Protein (6.4-8.2) g/dL Albumin (3.4-5.0) g/dL Globulin (2.6-4.0) g/dL Albumin/Globulin Ratio (0.9-1.6) Meds: Medications Discontinued Medications Generic Name Dose Route Start Last Admin Trade Name Freq PRN Reason Stop Dose Admin Iopamidol 50 ml 11/17/19 21:08 11/17/19 21:10 Isovue Multipack-370 (76%) IVPUSH 11/17/19 21:09 50 ml ONETIME STA Administration Lorazepam 1 mg 11/17/19 19:40 11/17/19 20:14 Ativan IVPUSH 11/17/19 19:41 1 mg ONETIME ONE Administration Sodium Chloride 10 ml 11/17/19 19:40 Saline Flush FLUSH ASDIRECTED PRN Keep Vein Open Sodium Chloride 2.5 ml 11/17/19 19:40 Saline Flush FLUSH ASDIRECTED PRN Keep Vein Open Departure - Departure Time of Disposition: 22:55 Disposition: Home, Self-Care 01 Condition: Good Clinical Impression: Chest pain, Anxiety - Discharge Information Instructions: Nonspecific Chest Pain, Adult Referrals: Shaka Rosen MD [Primary Care Provider] - Forms: ED Department Discharge Additional Instructions: Your images that were obtained today revealed some incidental findings that were not related to your primary complaint. Those findings do not appear emergent in nature, however, will require the attention of your family physician and further outpatient evaluation. Please follow up with your primary doctor to have these addressed. Your CT scan today did not find any evidence of pulmonary embolism in your lung or dissection of your aorta. There were small nodules within the right middle lobe measuring 4 mm. We are recommending that you follow-up with your primary care physician to get a repeat chest CAT scan in 1 year to evaluate the nodules. Your ER work-up for chest pain did not reveal any significant cause for the discomfort that you are having. Your EKG as well as your heart enzymes are all within normal limits. The CT scan of your chest did not reveal any significant pathology that can cause your chest discomfort. We recommend that you follow-up with your doctor within the week to be reevaluated. Please return to the ER if your symptoms return or if you have any new or concerning symptoms. The following information is given to patients seen in the emergency department who are being discharged to home. This information is to outline your options for follow-up care. We provide all patients seen in our emergency department with a follow-up referral. The need for follow-up, as well as the timing and circumstances, are variable depending upon the specifics of your emergency department visit. If you don't have a primary care physician on staff, we will provide you with a referral. We always advise you to contact your personal physician following an emergency department visit to inform them of the circumstance of the visit and for follow-up with them and/or the need for any referrals to a consulting specialist. The emergency department will also refer you to a specialist when appropriate. This referral assures that you have the opportunity for follow-up care with a specialist. All of these measure are taken in an effort to provide you with optimal care, which includes your follow-up. Under all circumstances we always encourage you to contact your private physician who remains a resource for coordinating your care. When calling for follow-up care, please make the office aware that this follow-up is from your recent emergency room visit. If for any reason you are refused follow-up, please contact the [facility] Emergency Department at and asked to speak to the emergency department charge nurse. Sepsis Event Note (ED) - Evaluation Sepsis Screening Result: No Definite Risk - Focused Exam Vital Signs: Vital Signs Temp Pulse Resp BP Pulse Ox 11/17/19 23:05 98.1 F 87 16 113/67 96 11/17/19 22:49 64 16 126/74 98 11/17/19 21:47 83 16 115/61 97 11/17/19 21:12 73 14 129/69 96 11/17/19 20:14 78 18 125/65 96 11/17/19 19:23 98.1 F 95 20 136/84 96 - My Orders Last 24 Hours: My Active Orders 11/17/19 19:42 Saline Lock Insert [OM.PC] Stat - Assessment/Plan Last 24 Hours: My Active Orders 11/17/19 19:42 Saline Lock Insert [OM.PC] Stat
[2019-11-17 20:09] LABS: BLOOD UREA NITROGEN,BUN 23 mg/dL (7.0-18.0); CARBON DIOXIDE,CO2 26.3 mmol/L (21.0-32.0); CHLORIDE,CL 105 mmol/L (98-107); GLUCOSE RANDOM 142 mg/dL (74-106); SODIUM,NA 142 mmol/L (136-145)
--- NOTE | 2019-11-17 20:11 | CR ---
Chest: 2 views of the chest were obtained. Comparison: Prior chest x-ray of 01/29/19. Heart size and mediastinum are normal. Minimal atelectasis within the left base is seen. Lungs otherwise are clear. No acute parenchymal change is seen. Bony structures are osteopenic. Slight degenerative change is scattered within the spine with mild scoliosis. Impression: 1. Slight atelectasis with the left base. 2. Nothing acute is seen on 2 view chest x-ray. Diagnostic code #2 This report was dictated in MDT
[2019-11-17] MEDS ORDERED: Iopamidol 755 MG/ML 500 ML Multipack Bottle IVPUSH STA (21:08)
--- NOTE | 2019-11-17 21:21 | CT ---
CT chest Technique: Multiple axial sections through the chest were obtained. Intravenous contrast was utilized. Study has been performed as a pulmonary angiogram protocol. Findings: Pulmonary arteries are well opacified. No filling defects are seen to indicate pulmonary embolism. Aorta shows no aneurysm. Atherosclerotic calcification is seen within the thoracic aorta. Mediastinum and hilar regions show no adenopathy. No axillary adenopathy is appreciated. Interstitial change is seen which is scattered within the chest compatible with minimal fibrosis. No acute parenchymal change is seen within the chest. Small nodule is noted within the right middle lobe measuring about 4 mm. No additional abnormality is seen within the lungs. Bone window settings were reviewed which shows mild degenerative change scattered within the spine. No acute osseous finding is seen within the chest. Impression: 1. No findings of pulmonary embolism. 2. Small nodule within the right middle lobe measuring 4 mm. Recommend repeat noncontrast chest CT study in one year. 3. Nothing acute is appreciated on CT study of the chest. Diagnostic code #9 This report was dictated in MDT
[2019-11-17 23:06] VITALS: BP 113/67; PULSE 87
== END 2019-11-17 23:06 | disposition home or self-care (01) ==
LOC: MW.ED 19:12
DX: F41.9 Anxiety disorder, unspecified (principal); F32.9 Major depressive disorder, single episode, unspecified; E78.00 Pure hypercholesterolemia, unspecified; E11.9 Type 2 diabetes mellitus without complications; Z79.899 Other long term (current) drug therapy; Z90.49 Acquired absence of other specified parts of digestive tract
CPT/HCPCS: 36415; 71046; 71275; 80053; 84484; 85025; 85379; 93005; 96374; 99285; J2060; Q9967

== ENCOUNTER 2021-04-25 07:09 | Emergency (ER) | payer MEDICARE, OTHER ==
[2021-04-25 07:55] LABS: CARBON DIOXIDE,CO2 28.4 mmol/L (21.0-32.0); POTASSIUM,K 4.5 mmol/L (3.5-5.1)
[2021-04-25 11:41] VITALS: BP 138/72; PULSE 69
== END 2021-04-25 11:40 | disposition home or self-care (01) ==
LOC: MW.ED 07:09
DX: R07.9 Chest pain, unspecified (principal); Z79.899 Other long term (current) drug therapy
CPT/HCPCS: 36415; 71046; 71046-26; 80053; 81001; 83690; 84484; 85025; 87086; 87088; 87186; 93005; 93010; 99283; 99285-25

== ENCOUNTER 2021-11-26 15:21 | Emergency (ER) | payer MEDICARE, OTHER ==
[2021-11-26 16:01] VITALS: BP 139/80; PULSE 83
== END 2021-11-26 16:01 | disposition home or self-care (01) ==
LOC: MW.ED 15:21
DX: N39.0 Urinary tract infection, site not specified (principal); E78.00 Pure hypercholesterolemia, unspecified; Z79.899 Other long term (current) drug therapy; Z79.82 Long term (current) use of aspirin; Z90.49 Acquired absence of other specified parts of digestive tract
CPT/HCPCS: 81001; 87086; 99283

== ENCOUNTER 2022-12-29 17:00 | Emergency (ER) | payer MEDICARE, OTHER ==
[2022-12-29 18:26] VITALS: BP 164/80; PULSE 76
[2022-12-29] MEDS ORDERED: ClonazePAM 1 MG Tab PO STA (19:25)
== END 2022-12-29 19:41 | disposition home or self-care (01) ==
LOC: MW.ED 17:00
DX: Z76.0 Encounter for issue of repeat prescription (principal); F41.9 Anxiety disorder, unspecified; F32.A Depression, unspecified; E78.00 Pure hypercholesterolemia, unspecified; Z79.899 Other long term (current) drug therapy
CPT/HCPCS: 99281; A9270; 99283

== ENCOUNTER 2023-02-03 10:44 | Emergency (ER) | payer MEDICARE, OTHER ==
[2023-02-03 11:01] LABS: APPEARANCE,URINE SLT CLOUDY; BILIRUBIN,URINE NEGATIVE (NEGATIVE); COLOR,URINE YELLOW; GLUCOSE,URINE NEGATIVE (NEGATIVE); KETONES,URINE NEGATIVE (NEGATIVE); LEUKOCYTE ESTERASE,URINE LARGE (NEGATIVE); NITRITE,URINE POSITIVE (NEGATIVE); OCCULT BLOOD,URINE SMALL (NEGATIVE); PROTEIN,URINE TRACE mg/dL (NEGATIVE)
[2023-02-03 11:11] LABS: BACTERIA,URINE FEW (NEGATIVE); EPITHELIAL CELLS,URINE RARE (NONE-FEW); MUCUS,URINE LIGHT (NONE-MOD); RBC,URINE 0-1 (0-2/HPF)
[2023-02-03 11:18] VITALS: BP 143/87; PULSE 83
== END 2023-02-03 11:22 | disposition home or self-care (01) ==
LOC: MW.ED 10:44
DX: N30.00 Acute cystitis without hematuria (principal); E78.00 Pure hypercholesterolemia, unspecified; Z90.49 Acquired absence of other specified parts of digestive tract; Z79.82 Long term (current) use of aspirin; Z79.899 Other long term (current) drug therapy
CPT/HCPCS: 81001; 87086; 99282; 99283